=== PATIENT | male | born 1950 | race Caucasian/White ===

== ENCOUNTER 2018-12-31 10:49 | Inpatient (IN) | payer MEDICARE ==
[2018-12-31] MEDS ORDERED: Sodium Chloride 0.9% 1,000 ML IV ONE (11:06)
--- NOTE | 2018-12-31 11:13 | ED Physician Chart ---
ED Chief Complaint/HPI - Patient Information Date Seen:: 12/31/18 Time Seen:: 11:00 Chief Complaint:: Weakness History of Present Illness:: onset x 3 days of weakness and fatigue; no report of trauma, H/As, S/T, neck pain, cough, C/P, SOB, Abd. Pain, A/N/V/D/C, fever, chills, or urinary s/s Vitals:: Vital Signs - 8 hr 12/31/18 11:00 Temp 97.4 F HR 93 RR 16 BP 96/63 O2 Sat % 98 Historian:: Patient Review:: Nurse's Note Reviewed, Old Chart Reviewed ED Review of Systems - Review of Systems General/Constitutional: Fever, No chills, No weight loss, Weakness, No diaphoresis, No edema, No loss of appetite Skin: No skin lesions, No rash, No bruising Head: No headache, No light-headedness Eyes: No loss of vision, No pain, No diplopia ENT: No earache, No nasal drainage, No sore throat, No tinnitus Neck: No neck pain, No swelling, No thyromegaly, No stiffness, No mass noted Cardio Vascular: No chest pain, No palpitations, No PND, No orthopnea, No edema Pulmonary: No SOB, No cough, No sputum, No wheezing GI: No nausea, No vomiting, No diarrhea, No pain, No melena, No hematochezia, No constipation, No hematemesis G/U: No dysuria, No frequency, No hematuria, No nacturia Musculoskeletal: No bone or joint pain, No back pain, No muscle pain Endocrine: No polyuria, No polydipsia Psychiatric: No prior psych history, No depression, No anxiety, No suicidal ideation, No homicidal ideation, No auditory hallucination, No visual hallucination Hematopoietic: No bruising, No lymphadenopathy Allergic/Immuno: No urticaria, No angioedema Neurological: No syncope, No focal symptoms, Weakness, No paresthesia, No headache, No seizure, No dizziness, No confusion, No vertigo ED Past Medical History - Past Medical History Obtainable: Yes Past Medical History: HTN Family History: HTN Social History: Non Smoker, No Alcohol, No Drug Use, , Care Facility Surgical History: None Psychiatricy History: None Medication: Reviewed Family Medical History - Family Member Mother History Unknown: Yes ED Physical Exam - Physical Examination General/Constitutional: Awake, Well-developed, well-nourished, Alert, No distress, GCS 15, Non-toxic appearing, Ambulatory Head: Atraumatic Eyes: Lids, conjuctiva normal, PERRL, EOMI Skin: Nl inspection, No rash, No skin lesions, No ecchymosis, Well hydrated, No lymphadenopathy ENMT: External ears, nose nl, TM canals nl, Nasal exam nl, Lips, teeth, gums nl , Oropharynx nl, Tonsils nl Neck: Nontender, Full ROM w/o pain, No JVD, No nuchal rigidity, No bruit, No mass, No stridor Respiratory: Nl effort/Exclusion, Clear to Auscultation, No Wheeze/Rhonchi/Rales Cardio Vascular: RRR, No murmur, gallop, rubs, NL S1 S2, Carotid/Femoral/Distal pulses equal bilaterally GI: No tenderness/rebounding/guarding, No organomegaly, No hernia, Normal BS's, Nondistended, No mass/bruits, No McBurney tenderness, Rectum exam nl : No CVA tenderness Extremities: No tenderness or effusion, Full ROM, normal strength in all extremities, No edema, Normal digits & nails Neuro/Psych: Alert/oriented, DTR's symmetric, Normal sensory exam, Normal motor strength, Judgement/insight normal, Mood normal, Normal gait, No focal deficits Misc: Normal back, No paraspinal tenderness ED Labs/Radiology/EKG Results - Lab Results Comments:: Reviewed - Radiology Results Comments:: NAD; ? Hiatal Hernia - EKG Interpretations EKG Time:: 12:35 Rate & Rhythm: 61; NSR Comments:: non-specific st-t changes ED Septic Shock - . Is Septic Shock (SBP<90, OR Lactate>4 mmol\L) present?: No - <6hrs of presentation: Vital Signs: Vital Signs - 8 hr 12/31/18 11:00 Temp 97.4 F HR 93 RR 16 BP 96/63 O2 Sat % 98 ED Reassessment (Disposition) - Reassessment Reassessment Condition:: Improved - Diagnosis Diagnosis:: Weakness; Faiigue; Hypotension; Dehydration; Hyponatremia; Hypoalbuminemia; Hiatal Hernia - Aftercare/Follow up Instructions Aftercare/Follow-Up Instructions:: Counseled pt regarding lab results/diagnosis & need follow up, Counseled pt & family regarding lab results/diagnosis & need follow up - Patient Disposition Discharge/Transfer:: Acute Care w/in this hosp Accepting Physician:: Dr. Hughes Time Called:: 1300 Time Responded:: 13:00 Admitted to:: Telemetry Spoke to:: Dr. Hughes Admitting Medical Physician:: Dr. Hughes Condition at Disposition:: Stable, Improved
[2018-12-31 11:52] LABS: INR 1.24 (0.5-1.4)
[2018-12-31 11:54] LABS: % BASOPHILS 0.6 % (0.0-2.0); % EOSINOPHILS 2.9 % (0.0-5.0); % LYMPHOCYTES 24.9 % (20.0-50.0); % MONOCYTES 7.4 % (2.0-10.0); % NEUTROPHILS 64.2 % (40.0-80.0); EOSINOPHILE ABSOLUTE 0.2 Th/cmm (0.1-0.4); HEMATOCRIT 49.8 % (41.0-60); HEMOGLOBIN 16.4 gm/dL (12-16); LYMPHOCYTE ABSOLUTE 1.4 Th/cmm (1.5-3.0); MEAN CELL VOLUME 92.4 fl (80-99); MEAN CORPUSCULAR HEMOGLOBIN 30.5 pg (27.0-31.0); MONOCYTE ABSOLUTE 0.4 Th/cmm (0.3-1.0); NEUTROPHILE ABSOLUTE 3.6 Th/cmm (1.8-8.0); PLATELET COUNT 206 Th/cmm (150-400); RED BLOOD COUNT 5.39 Mil/cmm (3.80-5.80); RED CELL DISTRIBUTION WIDTH 12.9 % (11.5-20.0); WHITE BLOOD COUNT 5.6 Th/cmm (4.8-10.8)
[2018-12-31 11:59] LABS: ALB/GLOB RATIO 1.1 (1.0-1.8); ALBUMIN 3.5 gm/dL (4.2-5.5); ALKALINE PHOSPHATASE 102 U/L (34-104); AMYLASE SERUM 55 U/L (29-103); ANION GAP 13.3 (7.0-16.0); BUN - UREA NITROGEN 7 mg/dL (7-25); CALCIUM SERUM 8.6 mg/dL (8.6-10.3); CARBON DIOXIDE 24.5 mEq/L (21.0-31.0); CHLORIDE 101 mEq/L (98-107); CREATININE - SERUM 0.7 mg/dL (0.7-1.3); GFR AFRICAN-AMERICAN > 60.0 ml/min (>90); GFR NON AFRICAN-AMERICAN > 60.0 ml/min; GLUCOSE 88 mg/dL (70-105); LIPASE 17 U/L (11-82); POTASSIUM SERUM 3.8 mEq/L (3.5-5.1); SGOT 14 U/L (13-39); SGPT/ALT 7 U/L (7-52); SODIUM SERUM 135 mEq/L (136-145); TOTAL PROTEIN,SERUM 6.6 gm/dL (6.0-8.3)
--- NOTE | 2018-12-31 12:14 | Diagnostic Imaging Report ---
CHEST X-RAY: AP view INDICATION: pain COMPARISON: None FINDINGS: There is no focal consolidation or pleural effusions The heart is normal in size. There is soft tissue density along the right cardiac border. Osseous structures are intact. There is evidence of previous right AC joint separation. IMPRESSION: Soft tissue density along the right cardiac border. This may represent a large hiatal hernia. Other mass lesions cannot be excluded. Please correlate with clinical findings and old exams. Lateral views or CT exam may be obtained for further assessment. Final results were administered to the referring team on 12/31/2018 at 12:11 PM.
[2018-12-31 13:45] LABS: BILIRUBIN,TOTAL 0.8 mg/dL (0.3-1.0); CREATININE KINASE 60 U/L (30-223)
[2018-12-31 14:32] LABS: URINE SOURCE MIDSTREAM
[2018-12-31 14:36] LABS: URINE BILIRUBIN MODERATE (NEGATIVE); URINE BLOOD NEGATIVE (NEGATIVE); URINE GLUCOSE (UA) NEGATIVE (NEGATIVE); URINE KETONE 15 mg/dL (NEGATIVE); URINE LEUKOCYTE ESTERASE NEGATIVE (NEGATIVE); URINE MICROSCOPIC INDICATED? YES; URINE NITRATE NEGATIVE (NEGATIVE); URINE PROTEIN TRACE mg/dL (NEGATIVE)
[2018-12-31 14:39] LABS: URINE CLARITY CLEAR (CLEAR); URINE COLOR YELLOW
[2018-12-31 14:58] LABS: URINE BACTERIA NONE SEEN /hpf (NONE SEEN); URINE EPITHELIAL CELLS NONE SEEN /lpf (FEW); URINE RBC NONE SEEN /hpf (0-5); URINE SPERM FEW /hpf (NONE SEEN); URINE WBC NONE SEEN /hpf (0-5)
[2018-12-31 22:21] VITALS: BP 111/70
[2018-12-31] MEDS: D5-0.45NS 1,000 ML IV SCH (23:43)
[2019-01-01 11:15] LABS: URINE ICTOTEST NEGATIVE (NEGATIVE)
[2019-01-01] MEDS: D5-0.45NS 1,000 ML IV SCH ×2 (11:45→19:03)
--- NOTE | 2019-01-01 11:52 | History and Physical ---
History of Present Illness - HPI Chief Complaint: 68 y/o male was brought into ER due to onset x 3 days of fatigue and weakness. HPI: 68 y/o male was admitted to [facility] due to onset x 3 days of fatigue and weakness. Patient has history of Hypertension. Patient had an ER assessment and a complete workup done. Patient had a chest x-ray performed which showed Large hiatal hernia. Patient was diagnosed with Large Hiatal hernia. Patient will have a GI consult. I will follow, treat and monitor patient. Patient will continue current treatment plan as ordered. Vital Signs: Last Vital Signs Temp 97.5 F 01/01/19 07:28 Pulse 58 01/01/19 07:28 Resp 18 01/01/19 07:28 BP 103/61 01/01/19 07:28 Pulse Ox 95 01/01/19 07:28 Past Medical History Cardiovascular: Report: HTN Pulmonary: Report: No Pertinent Hx [employer]: Report: No Pertinent Hx GI: Report: No Pertinent Hx Psych: Report: No Pertinent Hx Musculoskeletal: Report: No Pertinent Hx Rheumatologic: Report: No pertinent Hx Infectious Disease: Report: No Pertinent Hx Renal/: Report: No Pertinent Hx Endocrine: Report: No Pertinent Hx Dermatology: Report: No Pertinent Hx - Past Surgical History Past Surgical History: No pertinent Hx Family Medical History - Family Member Mother History Unknown: Yes Name:: PEARL SULLIVAN Ethnicity: Non- Living Status: Hx Family Coronary Artery Disease: Yes FATHER Name:: JOI SULLIVAN Ethnicity: Non- Living Status: Other Medical History: GASTRIC ULCER,UPPER G.I.BLEED (CAUSE OF ) Social History Smoke: No Alcohol: None Drugs: None Lives: Intermediate Domestic Violence: Negative Health Maintenance Health Maintenance: Other (please see chart.) - Medications Home Medications: Home Medication Medication Instructions Recorded Type Unobtainable 12/31/18 History Other Medications: Please see medication reconciliation sheet. - Allergies Allergies/Adverse Reactions: Allergies Allergy/AdvReac Type Severity Reaction Status Date / Time No Known Allergies Allergy Verified 12/31/18 11:33 Review of Systems - Review of Systems Review of Systems: Patient was admitted due to weakness, fatigue and Large Hiatal hernia. Constitutional: Report: Weakness, Other (Fatigue.) Eyes: Report: No Significant ENT: Report: No Significant Respiratory: Report: No Significant Cardiovascular: Report: No Significant Gastrointestinal: Report: Other (Hiatal hernia.) Genitourinary: Report: No Significant Musculoskeletal: Report: No Significant Skin: Report: No Significant Neurological: Report: Weakness Physical Exam - Physical Exam HEENT: Report: Ears Nose Throat within normal limits Neck: Report: Within normal limits Cardiovascular Systems: Report: +s1/s2 noted Respiratory: Report: Breath Sounds are within normal limits Abdomen: Report: Non-tender to palpation Back: Report: Inspection of back is within normal limits. Extremities: Report: Non-tender to palpation. Skin: Report: Color of skin is within normal limits Neuro/Psych: Report: Mood affect is within normal limits - Lab Results All Lab Results last 24 hours: Laboratory Results - last 24 hr 12/31/18 12/31/18 12/31/18 11:25 11:25 11:25 WBC 5.6 RBC 5.39 Hgb 16.4 Hct 49.8 MCV 92.4 MCH 30.5 MCHC Differential 33.0 RDW 12.9 Plt Count 206 MPV 10.6 Neutrophils % 64.2 Lymphocytes % 24.9 Monocytes % 7.4 Eosinophils % 2.9 Basophils % 0.6 PT 12.8 H INR 1.24 PTT (Actin FS) 34.6 Sodium 135 L Potassium 3.8 Chloride 101 Carbon Dioxide 24.5 Anion Gap 13.3 BUN 7 Creatinine 0.7 Est GFR ( Amer) > 60.0 Est GFR (Non-Af Amer) > 60.0 BUN/Creatinine Ratio 10.0 Glucose 88 Whole Bld Lactic Acid Calcium 8.6 Total Bilirubin 0.8 AST 14 ALT 7 Alkaline Phosphatase 102 Creatine Kinase 60 Troponin I Total Protein 6.6 Albumin 3.5 L Globulin 3.1 Albumin/Globulin Ratio 1.1 Amylase 55 Lipase 17 Urine Source Urine Color Urine Clarity Urine pH Ur Specific [place] Urine Protein Urine Glucose (UA) Urine Ketones Urine Blood Urine Nitrate Urine Bilirubin Urine Ictotest Urine Urobilinogen Ur Leukocyte Esterase Urine RBC Urine WBC Ur Epithelial Cells Urine Bacteria Urine Mucus Urine Sperm 12/31/18 12/31/18 11:25 14:30 WBC RBC Hgb Hct MCV MCH MCHC Differential RDW Plt Count MPV Neutrophils % Lymphocytes % Monocytes % Eosinophils % Basophils % PT INR PTT (Actin FS) Sodium Potassium Chloride Carbon Dioxide Anion Gap BUN Creatinine Est GFR ( Amer) Est GFR (Non-Af Amer) BUN/Creatinine Ratio Glucose Whole Bld Lactic Acid 0.97 Calcium Total Bilirubin AST ALT Alkaline Phosphatase Creatine Kinase Troponin I < 0.01 L Total Protein Albumin Globulin Albumin/Globulin Ratio Amylase Lipase Urine Source [place] Urine Color YELLOW Urine Clarity CLEAR Urine pH 6.0 Ur Specific [place] >= 1.030 Urine Protein TRACE Urine Glucose (UA) NEGATIVE Urine Ketones 15 H Urine Blood NEGATIVE Urine Nitrate NEGATIVE Urine Bilirubin MODERATE H Urine Ictotest NEGATIVE Urine Urobilinogen 1.0 Ur Leukocyte Esterase NEGATIVE Urine RBC NONE SEEN Urine WBC NONE SEEN Ur Epithelial Cells NONE SEEN Urine Bacteria NONE SEEN Urine Mucus MANY Urine Sperm FEW - Assessment Assessment: Large hiatal hernia. Hypertension. - Plan Plan: GI consult requested. Continuation of care. Monitor Labs. Continue present meds as directed. Monitor Diet/Nutritional support. Pain Management. Physical therapy/Occupational therapy prn. Safety precaution. Supportive care. Fall precaution, frequent nursing rounds, and as needed restraints to prevent fall. Continue collaborating with consulting specialists, case management and nursing team. Will Monitor patient and continue current treatment plan as ordered.
[2019-01-01] MEDS: Atorvastatin Calcium 10 MG TAB PO SCH (18:44)
[2019-01-02] MEDS: D5-0.45NS 1,000 ML IV SCH ×4 (02:49→20:11)
[2019-01-02 05:23] LABS: % EOSINOPHILS 3.3 % (0.0-5.0); % LYMPHOCYTES 28.8 % (20.0-50.0); % NEUTROPHILS 60.7 % (40.0-80.0); BASOPHILE ABSOLUTE 0.1 Th/cumm (0-0.2); EOSINOPHILE ABSOLUTE 0.2 Th/cmm (0.1-0.4); HEMATOCRIT 45.7 % (41.0-60); LYMPHOCYTE ABSOLUTE 1.9 Th/cmm (1.5-3.0); MEAN CELL VOLUME 93.1 fl (80-99); MEAN CORPUSCULAR HEMOGLOBIN 30.7 pg (27.0-31.0); MEAN CORPUSCULAR HGB CONC 32.9 pg (28.0-36.0); MONOCYTE ABSOLUTE 0.3 Th/cmm (0.3-1.0); PLATELET COUNT 183 Th/cmm (150-400); RED CELL DISTRIBUTION WIDTH 12.9 % (11.5-20.0); WHITE BLOOD COUNT 6.5 Th/cmm (4.8-10.8)
[2019-01-02 05:30] LABS: ANION GAP 8.3 (7.0-16.0); BUN - UREA NITROGEN 6 mg/dL (7-25); CHLORIDE 107 mEq/L (98-107); CREATININE - SERUM 0.6 mg/dL (0.7-1.3); GFR AFRICAN-AMERICAN > 60.0 ml/min (>90); GFR NON AFRICAN-AMERICAN > 60.0 ml/min; GLUCOSE 109 mg/dL (70-105); POTASSIUM SERUM 3.3 mEq/L (3.5-5.1); SODIUM SERUM 138 mEq/L (136-145)
[2019-01-02 05:56] LABS: % BASOPHILS 1.7 % (0.0-2.0)
[2019-01-02] MEDS: Atorvastatin Calcium 10 MG TAB PO SCH (08:21)
[2019-01-02] MEDS ORDERED: Potassium Chloride 20 mEq ER Tab PO ONE (11:09)
--- NOTE | 2019-01-02 12:04 | Internal Medicine Prog Note ---
Internal Medicine Subjective - Subjective Service Date: 01/02/19 Patient seen and examined:: with staff Patient is:: awake Per staff patient has:: tolerating meds Internal Medicine Objective - Results Result Diagrams: 01/02/19 05:05 01/02/19 05:05 Recent Labs: Laboratory Last Values WBC 6.5 Th/cmm (4.8-10.8) 01/02/19 05:05 RBC 4.90 Mil/cmm (3.80-5.80) 01/02/19 05:05 Hgb 15.0 gm/dL (12-16) 01/02/19 05:05 Hct 45.7 % (41.0-60) 01/02/19 05:05 MCV 93.1 fl (80-99) 01/02/19 05:05 MCH 30.7 pg (27.0-31.0) 01/02/19 05:05 MCHC Differential 32.9 pg (28.0-36.0) 01/02/19 05:05 RDW 12.9 % (11.5-20.0) 01/02/19 05:05 Plt Count 183 Th/cmm (150-400) 01/02/19 05:05 MPV 9.3 fl 01/02/19 05:05 Neutrophils % 60.7 % (40.0-80.0) 01/02/19 05:05 Lymphocytes % 28.8 % (20.0-50.0) 01/02/19 05:05 Monocytes % 5.0 % (2.0-10.0) 01/02/19 05:05 Eosinophils % 3.3 % (0.0-5.0) 01/02/19 05:05 Basophils % 1.7 % (0.0-2.0) 01/02/19 05:05 PT 12.8 SECONDS (9.5-11.5) H 12/31/18 11:25 INR 1.24 (0.5-1.4) 12/31/18 11:25 PTT (Actin FS) 34.6 SECONDS (26.0-38.0) 12/31/18 11:25 Sodium 138 mEq/L (136-145) 01/02/19 05:05 Potassium 3.3 mEq/L (3.5-5.1) L 01/02/19 05:05 Chloride 107 mEq/L (98-107) 01/02/19 05:05 Carbon Dioxide 26.0 mEq/L (21.0-31.0) 01/02/19 05:05 Anion Gap 8.3 (7.0-16.0) 01/02/19 05:05 BUN 6 mg/dL (7-25) L 01/02/19 05:05 Creatinine 0.6 mg/dL (0.7-1.3) L 01/02/19 05:05 Est GFR ( Amer) > 60.0 ml/min (>90) 01/02/19 05:05 Est GFR (Non-Af Amer) > 60.0 ml/min 01/02/19 05:05 BUN/Creatinine Ratio 10.0 01/02/19 05:05 Glucose 109 mg/dL (70-105) H 01/02/19 05:05 Whole Bld Lactic Acid 0.97 mmol/L (0.60-1.99) 12/31/18 11:25 Calcium 8.0 mg/dL (8.6-10.3) L 01/02/19 05:05 Total Bilirubin 0.8 mg/dL (0.3-1.0) 12/31/18 11:25 AST 14 U/L (13-39) 12/31/18 11:25 ALT 7 U/L (7-52) 12/31/18 11:25 Alkaline Phosphatase 102 U/L (34-104) 12/31/18 11:25 Creatine Kinase 60 U/L (30-223) 12/31/18 11:25 Troponin I < 0.01 ng/mL (0.01-0.05) L 12/31/18 11:25 Total Protein 6.6 gm/dL (6.0-8.3) 12/31/18 11:25 Albumin 3.5 gm/dL (4.2-5.5) L 12/31/18 11:25 Globulin 3.1 gm/dL 12/31/18 11:25 Albumin/Globulin Ratio 1.1 (1.0-1.8) 12/31/18 11:25 Amylase 55 U/L (29-103) 12/31/18 11:25 Lipase 17 U/L (11-82) 12/31/18 11:25 Urine Source MIDSTREAM 12/31/18 14:30 Urine Color YELLOW 12/31/18 14:30 Urine Clarity CLEAR (CLEAR) 12/31/18 14:30 Urine pH 6.0 (4.6 - 8.0) 12/31/18 14:30 Ur Specific [place] >= 1.030 (1.005-1.030) 12/31/18 14:30 Urine Protein TRACE mg/dL (NEGATIVE) 12/31/18 14:30 Urine Glucose (UA) NEGATIVE mg/dL (NEGATIVE) 12/31/18 14:30 Urine Ketones 15 mg/dL (NEGATIVE) H 12/31/18 14:30 Urine Blood NEGATIVE (NEGATIVE) 12/31/18 14:30 Urine Nitrate NEGATIVE (NEGATIVE) 12/31/18 14:30 Urine Bilirubin MODERATE (NEGATIVE) H 12/31/18 14:30 Urine Ictotest NEGATIVE (NEGATIVE) 12/31/18 14:30 Urine Urobilinogen 1.0 E.U./dL (0.2 - 1.0) 12/31/18 14:30 Ur Leukocyte Esterase NEGATIVE (NEGATIVE) 12/31/18 14:30 Urine RBC NONE SEEN /hpf (0-5) 12/31/18 14:30 Urine WBC NONE SEEN /hpf (0-5) 12/31/18 14:30 Ur Epithelial Cells NONE SEEN /lpf (FEW) 12/31/18 14:30 Urine Bacteria NONE SEEN /hpf (NONE SEEN) 12/31/18 14:30 Urine Mucus MANY /lpf (FEW) 12/31/18 14:30 Urine Sperm FEW /hpf (NONE SEEN) 12/31/18 14:30 - Physical Exam Vitals and I&O: Vital Signs Temp 97.4 F 01/02/19 08:00 Pulse 58 01/02/19 08:00 Resp 18 01/02/19 08:00 BP 99/61 01/02/19 08:00 Pulse Ox 94 01/02/19 08:00 Intake & Output 01/01/19 01/02/19 01/02/19 18:59 06:59 18:59 Intake Total 1550 1883.333 691.667 Output Total 600 Balance 1550 1283.333 691.667 Weight (lbs) 220 lb 220 lb Intake: Intake, IV Amount 1000 1883.333 691.667 D5-0.45NS 1,000 ml @ 125 1000 1883.333 691.667 mls/hr IV .Q8H [facility] Rx#: [id number] Oral 550 Output: Urine 600 Other: # Voids 4 # Bowel Movements 1 Stool Characteristics Soft Soft Soft Weight Source Bedscale Bedscale Active Medications: Current Medications Atorvastatin Calcium (Lipitor) 40 mg PO DAILY [facility]; Protocol Stop: 03/02/19 17:44 Last Admin: 01/02/19 08:21 Dose: 40 mg Donepezil HCl (Aricept) 10 mg PO DAILY [facility] Stop: 03/02/19 17:29 Last Admin: 01/02/19 08:21 Dose: 10 mg Escitalopram Oxalate (Lexapro) 10 mg PO DAILY [facility]; Protocol Stop: 03/02/19 17:14 Last Admin: 01/02/19 08:21 Dose: 10 mg Folic Acid (Folate) 1 mg PO DAILY [facility] Stop: 03/02/19 17:14 Last Admin: 01/02/19 08:21 Dose: 1 mg Dextrose/Sodium Chloride (D5-0.45ns) 1,000 mls @ 125 mls/hr IV .Q8H [facility] Stop: 03/01/19 23:37 Last Admin: 01/02/19 08:21 Dose: 125 mls/hr Risperidone (Risperdal) 3 mg PO DAILY [facility]; Protocol Stop: 03/02/19 17:29 Last Admin: 01/02/19 08:20 Dose: 3 mg Rivaroxaban (Xarelto) 20 mg PO DAILY [facility] Stop: 03/02/19 17:14 Last Admin: 01/02/19 08:21 Dose: 20 mg Trazodone HCl (Desyrel) 100 mg PO HS [facility]; Protocol Stop: 03/02/19 20:59 Last Admin: 01/01/19 20:40 Dose: 100 mg General: weak HEENT: NC/AT, PERRLA Neck: Supple Lungs: CTAB Cardiovascular: without murmur Abdomen: soft, non-tender, non-distended Extremities: excoriation Internal Medicine Assmt/Plan - Assessment Assessment: Large hiatal hernia. Hypertension. - Plan Plan: Continuation of care. Monitor Labs. Continue present meds as directed. Monitor Diet/Nutritional support. Pain Management. Physical therapy/Occupational therapy prn. Safety precaution. Supportive care. Fall precaution, frequent nursing rounds, and as needed restraints to prevent fall. Continue collaborating with consulting specialists, case management and nursing team. Will Monitor patient and continue current treatment plan as ordered.
[2019-01-03] MEDS: D5-0.45NS 1,000 ML IV SCH ×3 (03:58→20:47)
[2019-01-03 05:27] LABS: % BASOPHILS 2.9 % (0.0-2.0); % EOSINOPHILS 2.9 % (0.0-5.0); % LYMPHOCYTES 25.4 % (20.0-50.0); % MONOCYTES 3.7 % (2.0-10.0); % NEUTROPHILS 65.1 % (40.0-80.0); BASOPHILE ABSOLUTE 0.2 Th/cumm (0-0.2); EOSINOPHILE ABSOLUTE 0.2 Th/cmm (0.1-0.4); HEMATOCRIT 43.7 % (41.0-60); HEMOGLOBIN 14.5 gm/dL (12-16); LYMPHOCYTE ABSOLUTE 1.7 Th/cmm (1.5-3.0); MEAN CELL VOLUME 91.4 fl (80-99); MEAN CORPUSCULAR HEMOGLOBIN 30.4 pg (27.0-31.0); MEAN CORPUSCULAR HGB CONC 33.2 pg (28.0-36.0); MONOCYTE ABSOLUTE 0.2 Th/cmm (0.3-1.0); NEUTROPHILE ABSOLUTE 4.2 Th/cmm (1.8-8.0); PLATELET COUNT 200 Th/cmm (150-400); RED BLOOD COUNT 4.78 Mil/cmm (3.80-5.80); WHITE BLOOD COUNT 6.5 Th/cmm (4.8-10.8)
[2019-01-03 05:36] LABS: ANION GAP 8.2 (7.0-16.0); BUN - UREA NITROGEN 7 mg/dL (7-25); CARBON DIOXIDE 26.3 mEq/L (21.0-31.0); CHLORIDE 104 mEq/L (98-107); CREATININE - SERUM 0.7 mg/dL (0.7-1.3); GFR AFRICAN-AMERICAN > 60.0 ml/min (>90); GFR NON AFRICAN-AMERICAN > 60.0 ml/min; GLUCOSE 104 mg/dL (70-105); POTASSIUM SERUM 3.5 mEq/L (3.5-5.1); SODIUM SERUM 135 mEq/L (136-145)
[2019-01-03] MEDS: Atorvastatin Calcium 10 MG TAB PO SCH (08:32)
[2019-01-03] MEDS: Pantoprazole 40 mg EC Tab PO SCH (09:27)
--- NOTE | 2019-01-03 11:34 | Internal Medicine Prog Note ---
Internal Medicine Subjective - Subjective Service Date: 01/03/19 Patient seen and examined:: with staff Patient is:: awake, verbal, in bed Patient Complaints of:: other (Large Hiatal hernia.) Per staff patient has:: no episodes of fall, tolerating meds Internal Medicine Objective - Results Result Diagrams: 01/03/19 05:15 01/03/19 05:15 Recent Labs: Laboratory Last Values WBC 6.5 Th/cmm (4.8-10.8) 01/03/19 05:15 RBC 4.78 Mil/cmm (3.80-5.80) 01/03/19 05:15 Hgb 14.5 gm/dL (12-16) 01/03/19 05:15 Hct 43.7 % (41.0-60) 01/03/19 05:15 MCV 91.4 fl (80-99) 01/03/19 05:15 MCH 30.4 pg (27.0-31.0) 01/03/19 05:15 MCHC Differential 33.2 pg (28.0-36.0) 01/03/19 05:15 RDW 13.0 % (11.5-20.0) 01/03/19 05:15 Plt Count 200 Th/cmm (150-400) 01/03/19 05:15 MPV 9.5 fl 01/03/19 05:15 Neutrophils % 65.1 % (40.0-80.0) 01/03/19 05:15 Lymphocytes % 25.4 % (20.0-50.0) 01/03/19 05:15 Monocytes % 3.7 % (2.0-10.0) 01/03/19 05:15 Eosinophils % 2.9 % (0.0-5.0) 01/03/19 05:15 Basophils % 2.9 % (0.0-2.0) H 01/03/19 05:15 PT 12.8 SECONDS (9.5-11.5) H 12/31/18 11:25 INR 1.24 (0.5-1.4) 12/31/18 11:25 PTT (Actin FS) 34.6 SECONDS (26.0-38.0) 12/31/18 11:25 Sodium 135 mEq/L (136-145) L 01/03/19 05:15 Potassium 3.5 mEq/L (3.5-5.1) 01/03/19 05:15 Chloride 104 mEq/L (98-107) 01/03/19 05:15 Carbon Dioxide 26.3 mEq/L (21.0-31.0) 01/03/19 05:15 Anion Gap 8.2 (7.0-16.0) 01/03/19 05:15 BUN 7 mg/dL (7-25) 01/03/19 05:15 Creatinine 0.7 mg/dL (0.7-1.3) 01/03/19 05:15 Est GFR ( Amer) > 60.0 ml/min (>90) 01/03/19 05:15 Est GFR (Non-Af Amer) > 60.0 ml/min 01/03/19 05:15 BUN/Creatinine Ratio 10.0 01/03/19 05:15 Glucose 104 mg/dL (70-105) 01/03/19 05:15 Whole Bld Lactic Acid 0.97 mmol/L (0.60-1.99) 12/31/18 11:25 Calcium 8.0 mg/dL (8.6-10.3) L 01/03/19 05:15 Total Bilirubin 0.8 mg/dL (0.3-1.0) 12/31/18 11:25 AST 14 U/L (13-39) 12/31/18 11:25 ALT 7 U/L (7-52) 12/31/18 11:25 Alkaline Phosphatase 102 U/L (34-104) 12/31/18 11:25 Creatine Kinase 60 U/L (30-223) 12/31/18 11:25 Troponin I < 0.01 ng/mL (0.01-0.05) L 12/31/18 11:25 Total Protein 6.6 gm/dL (6.0-8.3) 12/31/18 11:25 Albumin 3.5 gm/dL (4.2-5.5) L 12/31/18 11:25 Globulin 3.1 gm/dL 12/31/18 11:25 Albumin/Globulin Ratio 1.1 (1.0-1.8) 12/31/18 11:25 Amylase 55 U/L (29-103) 12/31/18 11:25 Lipase 17 U/L (11-82) 12/31/18 11:25 Urine Source [place] 12/31/18 14:30 Urine Color YELLOW 12/31/18 14:30 Urine Clarity CLEAR (CLEAR) 12/31/18 14:30 Urine pH 6.0 (4.6 - 8.0) 12/31/18 14:30 Ur Specific [place] >= 1.030 (1.005-1.030) 12/31/18 14:30 Urine Protein TRACE mg/dL (NEGATIVE) 12/31/18 14:30 Urine Glucose (UA) NEGATIVE mg/dL (NEGATIVE) 12/31/18 14:30 Urine Ketones 15 mg/dL (NEGATIVE) H 12/31/18 14:30 Urine Blood NEGATIVE (NEGATIVE) 12/31/18 14:30 Urine Nitrate NEGATIVE (NEGATIVE) 12/31/18 14:30 Urine Bilirubin MODERATE (NEGATIVE) H 12/31/18 14:30 Urine Ictotest NEGATIVE (NEGATIVE) 12/31/18 14:30 Urine Urobilinogen 1.0 E.U./dL (0.2 - 1.0) 12/31/18 14:30 Ur Leukocyte Esterase NEGATIVE (NEGATIVE) 12/31/18 14:30 Urine RBC NONE SEEN /hpf (0-5) 12/31/18 14:30 Urine WBC NONE SEEN /hpf (0-5) 12/31/18 14:30 Ur Epithelial Cells NONE SEEN /lpf (FEW) 12/31/18 14:30 Urine Bacteria NONE SEEN /hpf (NONE SEEN) 12/31/18 14:30 Urine Mucus MANY /lpf (FEW) 12/31/18 14:30 Urine Sperm FEW /hpf (NONE SEEN) 12/31/18 14:30 - Physical Exam Vitals and I&O: Vital Signs Temp 98.3 F 01/03/19 07:58 Pulse 64 01/03/19 07:58 Resp 20 01/03/19 07:58 BP 113/70 01/03/19 07:58 Pulse Ox 100 01/03/19 07:58 Intake & Output 01/02/19 01/03/19 01/03/19 18:59 06:59 18:59 Intake Total 2004.167 1879.584 Output Total 800 1500 Balance 1204.167 379.584 Weight (lbs) 99.79 kg 99.79 kg Intake: Intake, IV Amount 9433.140 1613.584 D5-0.45NS 1,000 ml @ 125 7309.270 6443.584 mls/hr IV .Q8H [facility] Rx#: [id number] Oral 500 240 Output: Urine 800 1500 Other: Stool Characteristics Soft Weight Source Bedscale Bedscale Active Medications: Current Medications Atorvastatin Calcium (Lipitor) 40 mg PO DAILY [facility]; Protocol Stop: 03/02/19 17:44 Last Admin: 01/03/19 08:32 Dose: 40 mg Donepezil HCl (Aricept) 10 mg PO DAILY [facility] Stop: 03/02/19 17:29 Last Admin: 01/03/19 08:32 Dose: 10 mg Escitalopram Oxalate (Lexapro) 10 mg PO DAILY [facility]; Protocol Stop: 03/02/19 17:14 Last Admin: 01/03/19 08:32 Dose: 10 mg Folic Acid (Folate) 1 mg PO DAILY [facility] Stop: 03/02/19 17:14 Last Admin: 01/03/19 08:32 Dose: 1 mg Dextrose/Sodium Chloride (D5-0.45ns) 1,000 mls @ 125 mls/hr IV .Q8H [facility] Stop: 03/01/19 23:37 Last Admin: 01/03/19 03:58 Dose: 125 mls/hr Pantoprazole Sodium (Protonix) 40 mg PO QDAC [facility] Stop: 03/04/19 09:14 Last Admin: 01/03/19 09:27 Dose: 40 mg Risperidone (Risperdal) 3 mg PO DAILY [facility]; Protocol Stop: 03/02/19 17:29 Last Admin: 01/03/19 08:33 Dose: 3 mg Rivaroxaban (Xarelto) 20 mg PO DAILY [facility] Stop: 03/02/19 17:14 Last Admin: 01/03/19 08:32 Dose: 20 mg Trazodone HCl (Desyrel) 100 mg PO HS [facility]; Protocol Stop: 03/02/19 20:59 Last Admin: 01/02/19 20:10 Dose: 100 mg Physical Exam: Patient has Large hiatal hernia. General: weak HEENT: NC/AT, PERRLA Neck: Supple Lungs: CTAB Cardiovascular: without murmur Abdomen: soft, non-tender, non-distended Extremities: excoriation Neurological: no change, alert Internal Medicine Assmt/Plan - Assessment Assessment: Large hiatal hernia. Hypertension. - Plan Plan: GI consult requested. Continuation of care. Monitor Labs. Continue present meds as directed. Monitor Diet/Nutritional support. Pain Management. Physical therapy/Occupational therapy prn. Safety precaution. Supportive care. Fall precaution, frequent nursing rounds, and as needed restraints to prevent fall. Continue collaborating with consulting specialists, case management and nursing team. Will Monitor patient and continue current treatment plan as ordered. Nutritional Asmnt/Malnutr-PDOC - Dietary Evaluation Malnutrition Findings (Please click <Entered> for more info): see orders.
--- NOTE | 2019-01-03 12:48 | Consultation ---
DATE OF CONSULTATION: 01/03/2019 INPATIENT GASTROINTESTINAL CONSULTATION REFERRING PHYSICIAN: Dr. Hughes. REASON FOR CONSULTATION: Hiatal hernia. HISTORY: This is a 68-year-old male who was brought to the hospital because of fatigue and weakness and they called for GI consult. The patient denies having any abdominal pain. Denies nausea, vomiting. Denies diarrhea, denies constipation. Denies melena, hematochezia, hematemesis, and coffee-ground emesis. He states that there are no GI problems. He does admit on some occasion in his life he has experienced heartburn, but nothing that is unmanageable at this point. PAST MEDICAL HISTORY: Hypertension. PAST SURGICAL HISTORY: None to add recently. FAMILY HISTORY: Noncontributory. SOCIAL HISTORY: Denies tobacco, alcohol or IV drug usage. ALLERGIES: None. CURRENT MEDICATIONS: Lipitor, Aricept, Lexapro, folic acid, Risperdal, Xarelto, Desyrel. REVIEW OF SYSTEMS: A 10-point review of system was performed and pertinent positive was weakness. All other systems were otherwise negative. PHYSICAL EXAMINATION: VITAL SIGNS: Temperature is 98.3, breathing 20, pulse of 64, blood pressure 113/70, satting 100%. GENERAL: In no apparent distress. Eyes are anicteric. Normal conjunctivae. HEENT: Normocephalic, atraumatic. Moist mucous membranes. NECK: Soft, supple. CHEST: Clear, normal effort. CARDIOVASCULAR: Regular rate and rhythm. ABDOMEN: Soft, nontender, nondistended, normal bowel sounds. SKIN: Warm, dry. EXTREMITIES: Reveal no cyanosis. PSYCHOLOGIC: Alert and oriented x 3. LABORATORY DATA: Labs show a white count of 6.5, hemoglobin 14.5, platelets at 200. INR 1.24, BUN 7, creatinine 0.7, total bilirubin 0.8, AST 14, ALT 7, alkaline phosphatase 102. Lipase 17. IMPRESSION: This is a 68-year-old male with weakness, was admitted by the primary team. We are asked to consult for the hiatal hernia. There is a chest x-ray that shows that he may have a large hiatal hernia. This can be confirmed with an upper GI series. The patient states he had an endoscopy at the [facility] in 06/2018. His labs were reviewed and there were no signs of any anemia. His liver function tests and pancreatic tests were normal, indicating that there are no issues at this time for the hepatobiliary system. The patient does not have any symptoms at this time, but can be given some Protonix should he develop heartburn. PLAN: 1. Provide the patient with Protonix. 2. Get an upper GI series. 3. Consider doing an EGD, but since the patient had one done at [place] earlier this year, there is no need to repeat it in such a short time. 4. If the hiatal hernia is causing the patient to have the symptoms, please get a surgeon to see the patient to repair the hiatal hernia. Thank you for allowing me to participate. Please call me if any questions. JOB# [id number]
--- NOTE | 2019-01-03 13:48 | Diagnostic Imaging Report ---
Upper GI series HISTORY: Hiatal hernia COMPARISON: None technique/procedure: Cut Off [place] Log view demonstrates what appears to be a retrocardiac hiatal hernia. Oral contrast was administered multiple static images were obtained. Assessment for focal lesions is limited on this examination. There is a large retrocardiac hiatal hernia. There is transit of contrast into the small bowel. IMPRESSION: Large retrocardiac hiatal hernia. A follow-up x-ray is recommended to ensure clearance of oral contrast and patient's large hiatal hernia.
--- NOTE | 2019-01-03 14:08 | Diagnostic Imaging Report ---
CHEST X-RAY: AP view INDICATION: pain COMPARISON: 12/31/2018 FINDINGS: Retained oral contrast is still seen in patients hiatal hernia. Increased right basal lung markings are noted. No effusions. Mild cardiomegaly is noted. IMPRESSION: Retained oral contrast still seen within the patient's hiatal hernia. A follow-up x-ray may be obtained to ensure complete clearance. Increased right basal lung markings probably related to patient's hiatal hernia. Consolidative changes of the right medial lung base cannot be excluded, follow-up recommended.
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
[2019-01-04 05:48] LABS: MEAN CORPUSCULAR HEMOGLOBIN 30.4 pg (27.0-31.0); MONOCYTE ABSOLUTE 0.5 Th/cmm (0.3-1.0)
[2019-01-04 05:56] LABS: ANION GAP 7.5 (7.0-16.0); BUN - UREA NITROGEN 6 mg/dL (7-25); CALCIUM SERUM 8.1 mg/dL (8.6-10.3); CARBON DIOXIDE 28.1 mEq/L (21.0-31.0); CHLORIDE 104 mEq/L (98-107); CREATININE - SERUM 0.7 mg/dL (0.7-1.3); GFR AFRICAN-AMERICAN > 60.0 ml/min (>90); GFR NON AFRICAN-AMERICAN > 60.0 ml/min; GLUCOSE 101 mg/dL (70-105); POTASSIUM SERUM 3.6 mEq/L (3.5-5.1); SODIUM SERUM 136 mEq/L (136-145)
[2019-01-04 05:59] LABS: % BASOPHILS 0.2 % (0.0-2.0); % EOSINOPHILS 3.5 % (0.0-5.0); % LYMPHOCYTES 25.2 % (20.0-50.0); % MONOCYTES 7.4 % (2.0-10.0); % NEUTROPHILS 63.7 % (40.0-80.0); EOSINOPHILE ABSOLUTE 0.2 Th/cmm (0.1-0.4); HEMATOCRIT 48.5 % (41.0-60); LYMPHOCYTE ABSOLUTE 1.8 Th/cmm (1.5-3.0); MEAN CELL VOLUME 91.9 fl (80-99); NEUTROPHILE ABSOLUTE 4.6 Th/cmm (1.8-8.0); PLATELET COUNT 190 Th/cmm (150-400); RED BLOOD COUNT 5.27 Mil/cmm (3.80-5.80); RED CELL DISTRIBUTION WIDTH 13.1 % (11.5-20.0); WHITE BLOOD COUNT 7.1 Th/cmm (4.8-10.8)
[2019-01-04] MEDS: Pantoprazole 40 mg EC Tab PO SCH (06:37)
[2019-01-04] MEDS: D5-0.45NS 1,000 ML IV SCH ×3 (06:43→22:29)
--- NOTE | 2019-01-04 09:25 | Diagnostic Imaging Report ---
KUB single view HISTORY: Abdominal pain, ensure complete clearance of oral contrast. COMPARISON: Upper GI examination on 01/03/2019 FINDINGS: Patient's hiatal hernia is partially visualized, however, there appears to be clearance of contrast with the majority of contrast seen within the large bowel. The bowel gas pattern is nonspecific. IMPRESSION: Patient's hiatal hernia is partially visualized, however there appears to be clearance. The Majority of oral contrast is now seen within the large bowel. The bowel gas pattern is nonspecific.
[2019-01-04] MEDS: Atorvastatin Calcium 10 MG TAB PO SCH (09:30)
--- NOTE | 2019-01-04 13:21 | GI Progress Note ---
Subjective - Review of Systems Service Date: 01/04/19 Subjective: Tolerating a diet, no overnight events GI OBJECTIVE - Results Result Diagrams: 01/04/19 05:40 01/04/19 05:40 Recent Labs: Laboratory Last Values WBC 7.1 Th/cmm (4.8-10.8) 01/04/19 05:40 RBC 5.27 Mil/cmm (3.80-5.80) 01/04/19 05:40 Hgb 16.0 gm/dL (12-16) 01/04/19 05:40 Hct 48.5 % (41.0-60) 01/04/19 05:40 MCV 91.9 fl (80-99) 01/04/19 05:40 MCH 30.4 pg (27.0-31.0) 01/04/19 05:40 MCHC Differential 33.0 pg (28.0-36.0) 01/04/19 05:40 RDW 13.1 % (11.5-20.0) 01/04/19 05:40 Plt Count 190 Th/cmm (150-400) 01/04/19 05:40 MPV 10.1 fl 01/04/19 05:40 Neutrophils % 63.7 % (40.0-80.0) 01/04/19 05:40 Lymphocytes % 25.2 % (20.0-50.0) 01/04/19 05:40 Monocytes % 7.4 % (2.0-10.0) 01/04/19 05:40 Eosinophils % 3.5 % (0.0-5.0) 01/04/19 05:40 Basophils % 0.2 % (0.0-2.0) 01/04/19 05:40 PT 12.8 SECONDS (9.5-11.5) H 12/31/18 11:25 INR 1.24 (0.5-1.4) 12/31/18 11:25 PTT (Actin FS) 34.6 SECONDS (26.0-38.0) 12/31/18 11:25 Sodium 136 mEq/L (136-145) 01/04/19 05:40 Potassium 3.6 mEq/L (3.5-5.1) 01/04/19 05:40 Chloride 104 mEq/L (98-107) 01/04/19 05:40 Carbon Dioxide 28.1 mEq/L (21.0-31.0) 01/04/19 05:40 Anion Gap 7.5 (7.0-16.0) 01/04/19 05:40 BUN 6 mg/dL (7-25) L 01/04/19 05:40 Creatinine 0.7 mg/dL (0.7-1.3) 01/04/19 05:40 Est GFR ( Amer) > 60.0 ml/min (>90) 01/04/19 05:40 Est GFR (Non-Af Amer) > 60.0 ml/min 01/04/19 05:40 BUN/Creatinine Ratio 8.6 01/04/19 05:40 Glucose 101 mg/dL (70-105) 01/04/19 05:40 Whole Bld Lactic Acid 0.97 mmol/L (0.60-1.99) 12/31/18 11:25 Calcium 8.1 mg/dL (8.6-10.3) L 01/04/19 05:40 Total Bilirubin 0.8 mg/dL (0.3-1.0) 12/31/18 11:25 AST 14 U/L (13-39) 12/31/18 11:25 ALT 7 U/L (7-52) 12/31/18 11:25 Alkaline Phosphatase 102 U/L (34-104) 12/31/18 11:25 Creatine Kinase 60 U/L (30-223) 12/31/18 11:25 Troponin I < 0.01 ng/mL (0.01-0.05) L 12/31/18 11:25 Total Protein 6.6 gm/dL (6.0-8.3) 12/31/18 11:25 Albumin 3.5 gm/dL (4.2-5.5) L 12/31/18 11:25 Globulin 3.1 gm/dL 12/31/18 11:25 Albumin/Globulin Ratio 1.1 (1.0-1.8) 12/31/18 11:25 Amylase 55 U/L (29-103) 12/31/18 11:25 Lipase 17 U/L (11-82) 12/31/18 11:25 Urine Source MIDSTREAM 12/31/18 14:30 Urine Color YELLOW 12/31/18 14:30 Urine Clarity CLEAR (CLEAR) 12/31/18 14:30 Urine pH 6.0 (4.6 - 8.0) 12/31/18 14:30 Ur Specific [place] >= 1.030 (1.005-1.030) 12/31/18 14:30 Urine Protein TRACE mg/dL (NEGATIVE) 12/31/18 14:30 Urine Glucose (UA) NEGATIVE mg/dL (NEGATIVE) 12/31/18 14:30 Urine Ketones 15 mg/dL (NEGATIVE) H 12/31/18 14:30 Urine Blood NEGATIVE (NEGATIVE) 12/31/18 14:30 Urine Nitrate NEGATIVE (NEGATIVE) 12/31/18 14:30 Urine Bilirubin MODERATE (NEGATIVE) H 12/31/18 14:30 Urine Ictotest NEGATIVE (NEGATIVE) 12/31/18 14:30 Urine Urobilinogen 1.0 E.U./dL (0.2 - 1.0) 12/31/18 14:30 Ur Leukocyte Esterase NEGATIVE (NEGATIVE) 12/31/18 14:30 Urine RBC NONE SEEN /hpf (0-5) 12/31/18 14:30 Urine WBC NONE SEEN /hpf (0-5) 12/31/18 14:30 Ur Epithelial Cells NONE SEEN /lpf (FEW) 12/31/18 14:30 Urine Bacteria NONE SEEN /hpf (NONE SEEN) 12/31/18 14:30 Urine Mucus MANY /lpf (FEW) 12/31/18 14:30 Urine Sperm FEW /hpf (NONE SEEN) 12/31/18 14:30 - Physical Exam Vitals and I&O: Vital Signs Temp 97.3 F 01/04/19 08:00 Pulse 64 01/04/19 08:00 Resp 19 01/04/19 08:00 BP 89/50 01/04/19 08:00 Pulse Ox 90 01/04/19 08:00 Intake & Output 01/03/19 01/04/19 01/04/19 18:59 06:59 18:59 Intake Total 2200 2210.833 Output Total 1400 Balance 2200 810.833 Weight (lbs) 99.79 kg 100.244 kg Intake: Intake, IV Amount 1000 1970.833 D5-0.45NS 1,000 ml @ 125 1000 1970.833 mls/hr IV .Q8H [facility] Rx#: [id number] Oral 1200 240 Output: Urine 1400 Other: # Voids 7 # Bowel Movements 3 1 Weight Source Bedscale Bedscale Active Medications: Current Medications Atorvastatin Calcium (Lipitor) 40 mg PO DAILY [facility]; Protocol Stop: 03/02/19 17:44 Last Admin: 01/04/19 09:30 Dose: 40 mg Donepezil HCl (Aricept) 10 mg PO DAILY [facility] Stop: 03/02/19 17:29 Last Admin: 01/04/19 09:30 Dose: 10 mg Escitalopram Oxalate (Lexapro) 10 mg PO DAILY [facility]; Protocol Stop: 03/02/19 17:14 Last Admin: 01/04/19 09:30 Dose: 10 mg Folic Acid (Folate) 1 mg PO DAILY [facility] Stop: 03/02/19 17:14 Last Admin: 01/04/19 09:30 Dose: 1 mg Dextrose/Sodium Chloride (D5-0.45ns) 1,000 mls @ 125 mls/hr IV .Q8H [facility] Stop: 03/01/19 23:37 Last Admin: 01/04/19 06:43 Dose: 125 mls/hr Pantoprazole Sodium (Protonix) 40 mg PO QDAC [facility] Stop: 03/04/19 09:14 Last Admin: 01/04/19 06:37 Dose: 40 mg Risperidone (Risperdal) 3 mg PO DAILY [facility]; Protocol Stop: 03/02/19 17:29 Last Admin: 01/04/19 09:31 Dose: 3 mg Rivaroxaban (Xarelto) 20 mg PO DAILY [facility] Stop: 03/02/19 17:14 Last Admin: 01/04/19 09:31 Dose: 20 mg Trazodone HCl (Desyrel) 100 mg PO HS [facility]; Protocol Stop: 03/02/19 20:59 Last Admin: 01/03/19 20:47 Dose: 100 mg General: Alert, Oriented x3 HEENT: Atraumatic Neck: Supple Cardiovascular: Regular rate Abdomen: Bowel sounds, Soft, no Tender, no Hepatomegaly, no Splenomegaly, no Distended, no Rebound, no Mass Assessment/Plan - Assessment Assessment: # Hiatal hernia # Fatigue Large hiatal hernia seen on imaging. However, this does not appear to be clinically apparent. KUB shows contrast clearance. Plan: - EGD not necessary unless pt develops symptoms related to his hernia. Even then , endoscopy can not treat this; he would require surgical consultation - diet as tolerated - other mgmt as per primary GI will sign off, please call with any questions
--- NOTE | 2019-01-04 20:46 | Progress Notes ---
DATE: 01/04/2019 Case was discussed with staff of the patient, reviewed records. The patient is calm and cooperative. He believes his medication is working well for him with a history of schizophrenia. He came because of hiatal hernia. He is sleeping better. He denies any current intent to harm himself or anyone. He denies any current auditory or visual hallucination. He said they come and go, but currently happy with his medication. No side effects with the medication, no sedation, no nausea, no extrapyramidal symptoms. The patient needs follow up with the psychiatrist upon discharge. Thank you very much for allowing me to participate in the care of this most interesting lady. JOB# [id number]
--- NOTE | 2019-01-04 21:08 | Progress Notes ---
DATE: 01/04/2019 SUBJECTIVE: The patient was seen in his room. The patient denies any pain or discomfort. Otherwise, the patient is in no acute distress. OBJECTIVE: VITAL SIGNS: Temperature 97.5, heart rate 62, blood pressure 98/58, respiration 18, 97% on room air. HEENT: Head is atraumatic and normocephalic. Eyes: Bilateral conjunctivae are clear. Bilateral pupils are equally round and reactive. NECK: Supple. No JVD. CARDIOVASCULAR: S1 and S2, without murmur. PULMONARY: Clear to auscultation. GASTROINTESTINAL: Soft and nontender without guarding. Positive bowel sounds. MUSCULOSKELETAL: No clubbing. No cyanosis noted. ASSESSMENT: Large hiatal hernia. PLAN: The patient underwent a GI series yesterday. It was negative. We are waiting for EGD that was done in [facility] this year. We will have it evaluated by the GI doctor. If negative, the patient may be discharged to assisted facility. Treatment plans were discussed with the patient's nurse. Treatment plans were discussed with Dr. Hughes. JOB# [id number]
[2019-01-05] MEDS: Pantoprazole 40 mg EC Tab PO SCH (06:34)
[2019-01-05] MEDS: D5-0.45NS 1,000 ML IV SCH ×3 (07:56→23:21)
[2019-01-05] MEDS: Atorvastatin Calcium 10 MG TAB PO SCH (08:04)
--- NOTE | 2019-01-05 10:39 | Internal Medicine Prog Note ---
Internal Medicine Subjective - Subjective Patient is:: awake, verbal, in bed Patient Complaints of:: other (Large Hiatal hernia.) Per staff patient has:: no adverse event, no episodes of fall, tolerating meds Internal Medicine Objective - Results Result Diagrams: 01/04/19 05:40 01/04/19 05:40 Recent Labs: Laboratory Last Values WBC 7.1 Th/cmm (4.8-10.8) 01/04/19 05:40 RBC 5.27 Mil/cmm (3.80-5.80) 01/04/19 05:40 Hgb 16.0 gm/dL (12-16) 01/04/19 05:40 Hct 48.5 % (41.0-60) 01/04/19 05:40 MCV 91.9 fl (80-99) 01/04/19 05:40 MCH 30.4 pg (27.0-31.0) 01/04/19 05:40 MCHC Differential 33.0 pg (28.0-36.0) 01/04/19 05:40 RDW 13.1 % (11.5-20.0) 01/04/19 05:40 Plt Count 190 Th/cmm (150-400) 01/04/19 05:40 MPV 10.1 fl 01/04/19 05:40 Neutrophils % 63.7 % (40.0-80.0) 01/04/19 05:40 Lymphocytes % 25.2 % (20.0-50.0) 01/04/19 05:40 Monocytes % 7.4 % (2.0-10.0) 01/04/19 05:40 Eosinophils % 3.5 % (0.0-5.0) 01/04/19 05:40 Basophils % 0.2 % (0.0-2.0) 01/04/19 05:40 PT 12.8 SECONDS (9.5-11.5) H 12/31/18 11:25 INR 1.24 (0.5-1.4) 12/31/18 11:25 PTT (Actin FS) 34.6 SECONDS (26.0-38.0) 12/31/18 11:25 Sodium 136 mEq/L (136-145) 01/04/19 05:40 Potassium 3.6 mEq/L (3.5-5.1) 01/04/19 05:40 Chloride 104 mEq/L (98-107) 01/04/19 05:40 Carbon Dioxide 28.1 mEq/L (21.0-31.0) 01/04/19 05:40 Anion Gap 7.5 (7.0-16.0) 01/04/19 05:40 BUN 6 mg/dL (7-25) L 01/04/19 05:40 Creatinine 0.7 mg/dL (0.7-1.3) 01/04/19 05:40 Est GFR ( Amer) > 60.0 ml/min (>90) 01/04/19 05:40 Est GFR (Non-Af Amer) > 60.0 ml/min 01/04/19 05:40 BUN/Creatinine Ratio 8.6 01/04/19 05:40 Glucose 101 mg/dL (70-105) 01/04/19 05:40 Whole Bld Lactic Acid 0.97 mmol/L (0.60-1.99) 12/31/18 11:25 Calcium 8.1 mg/dL (8.6-10.3) L 01/04/19 05:40 Total Bilirubin 0.8 mg/dL (0.3-1.0) 12/31/18 11:25 AST 14 U/L (13-39) 12/31/18 11:25 ALT 7 U/L (7-52) 12/31/18 11:25 Alkaline Phosphatase 102 U/L (34-104) 12/31/18 11:25 Creatine Kinase 60 U/L (30-223) 12/31/18 11:25 Troponin I < 0.01 ng/mL (0.01-0.05) L 12/31/18 11:25 Total Protein 6.6 gm/dL (6.0-8.3) 12/31/18 11:25 Albumin 3.5 gm/dL (4.2-5.5) L 12/31/18 11:25 Globulin 3.1 gm/dL 12/31/18 11:25 Albumin/Globulin Ratio 1.1 (1.0-1.8) 12/31/18 11:25 Amylase 55 U/L (29-103) 12/31/18 11:25 Lipase 17 U/L (11-82) 12/31/18 11:25 Urine Source MIDSTREAM 12/31/18 14:30 Urine Color YELLOW 12/31/18 14:30 Urine Clarity CLEAR (CLEAR) 12/31/18 14:30 Urine pH 6.0 (4.6 - 8.0) 12/31/18 14:30 Ur Specific [place] >= 1.030 (1.005-1.030) 12/31/18 14:30 Urine Protein TRACE mg/dL (NEGATIVE) 12/31/18 14:30 Urine Glucose (UA) NEGATIVE mg/dL (NEGATIVE) 12/31/18 14:30 Urine Ketones 15 mg/dL (NEGATIVE) H 12/31/18 14:30 Urine Blood NEGATIVE (NEGATIVE) 12/31/18 14:30 Urine Nitrate NEGATIVE (NEGATIVE) 12/31/18 14:30 Urine Bilirubin MODERATE (NEGATIVE) H 12/31/18 14:30 Urine Ictotest NEGATIVE (NEGATIVE) 12/31/18 14:30 Urine Urobilinogen 1.0 E.U./dL (0.2 - 1.0) 12/31/18 14:30 Ur Leukocyte Esterase NEGATIVE (NEGATIVE) 12/31/18 14:30 Urine RBC NONE SEEN /hpf (0-5) 12/31/18 14:30 Urine WBC NONE SEEN /hpf (0-5) 12/31/18 14:30 Ur Epithelial Cells NONE SEEN /lpf (FEW) 12/31/18 14:30 Urine Bacteria NONE SEEN /hpf (NONE SEEN) 12/31/18 14:30 Urine Mucus MANY /lpf (FEW) 12/31/18 14:30 Urine Sperm FEW /hpf (NONE SEEN) 12/31/18 14:30 - Physical Exam Vitals and I&O: Vital Signs Temp 96.6 F 01/05/19 08:00 Pulse 63 01/05/19 08:00 Resp 18 01/05/19 08:00 BP 107/64 01/05/19 08:00 Pulse Ox 93 01/05/19 08:00 Intake & Output 01/04/19 01/05/19 01/05/19 18:59 06:59 18:59 Intake Total 1750 2274.583 Output Total 2300 Balance 1750 -25.417 Weight (lbs) 221 lb 221 lb Intake: Intake, IV Amount 1000 1914.583 D5-0.45NS 1,000 ml @ 125 1000 1914.583 mls/hr IV .Q8H [facility] Rx#: [id number] Oral 750 360 Output: Urine 2300 Other: # Voids 6 # Bowel Movements 1 Weight Source Bedscale Patient stated Active Medications: Current Medications Atorvastatin Calcium (Lipitor) 40 mg PO DAILY [facility]; Protocol Stop: 03/02/19 17:44 Last Admin: 01/05/19 08:04 Dose: 40 mg Donepezil HCl (Aricept) 10 mg PO DAILY [facility] Stop: 03/02/19 17:29 Last Admin: 01/05/19 08:04 Dose: 10 mg Escitalopram Oxalate (Lexapro) 10 mg PO DAILY [facility]; Protocol Stop: 03/02/19 17:14 Last Admin: 01/05/19 08:03 Dose: 10 mg Folic Acid (Folate) 1 mg PO DAILY [facility] Stop: 03/02/19 17:14 Last Admin: 01/05/19 08:04 Dose: 1 mg Dextrose/Sodium Chloride (D5-0.45ns) 1,000 mls @ 125 mls/hr IV .Q8H [facility] Stop: 03/01/19 23:37 Last Admin: 01/05/19 07:56 Dose: 125 mls/hr Pantoprazole Sodium (Protonix) 40 mg PO QDAC [facility] Stop: 03/04/19 09:14 Last Admin: 01/05/19 06:34 Dose: 40 mg Risperidone (Risperdal) 3 mg PO DAILY [facility]; Protocol Stop: 03/02/19 17:29 Last Admin: 01/05/19 08:04 Dose: 3 mg Rivaroxaban (Xarelto) 20 mg PO DAILY [facility] Stop: 03/02/19 17:14 Last Admin: 01/05/19 08:04 Dose: 20 mg Trazodone HCl (Desyrel) 100 mg PO HS [facility]; Protocol Stop: 03/02/19 20:59 Last Admin: 01/04/19 20:21 Dose: 100 mg General: weak HEENT: NC/AT, PERRLA Neck: Supple, No JVD Lungs: CTAB Cardiovascular: RRR, Normal S1, Normal S2 Abdomen: soft, non-tender, non-distended Extremities: excoriation Neurological: no change, alert Internal Medicine Assmt/Plan - Assessment Assessment: Hiatal Hernia HTN - Plan Plan: Continue current treatment plan. Monitor Labs.Continue current medications Continue to monitor VS Monitor Diet/Nutritional support. Pain Management. PT/OT prn Safety precaution, Fall precaution, frequent nursing round. Supportive care. Continue collaborating with consulting specialists, case management and nursing team. Appreciate consulting team recs. Awaiting EGD results from [facility] Disposition: possible discharge pending EGD result from [facility].
--- NOTE | 2019-01-05 22:48 | Progress Notes ---
DATE: 01/05/2019 SUBJECTIVE: Case was discussed with staff of the patient, reviewed records. The patient continues to be much more stable. His medical symptoms are improving. He is sleeping better, eating better. He denies any current intent to harm himself or anyone. He denies any auditory or visual hallucinations, paranoia. No side effects with the medication, no sedation, no nausea, and no extrapyramidal symptoms. He was seen by Gastroenterology. He is tolerating the diet so far. The patient will follow up with the psychiatrist on discharge. Thank you very much for allowing me to participate in the care of this most interesting gentleman. JOB# [id number]
[2019-01-06] MEDS: Pantoprazole 40 mg EC Tab PO SCH (06:33)
[2019-01-06] MEDS: Atorvastatin Calcium 10 MG TAB PO SCH (08:32)
--- NOTE | 2019-01-06 10:48 | Internal Medicine Prog Note ---
Internal Medicine Subjective - Subjective Service Date: 01/06/19 Patient seen and examined:: with staff Patient is:: awake, verbal, in bed Patient Complaints of:: other (Large Hiatal hernia.) Per staff patient has:: no adverse event, no episodes of fall, tolerating meds Internal Medicine Objective - Results Result Diagrams: 01/04/19 05:40 01/04/19 05:40 Recent Labs: Laboratory Last Values WBC 7.1 Th/cmm (4.8-10.8) 01/04/19 05:40 RBC 5.27 Mil/cmm (3.80-5.80) 01/04/19 05:40 Hgb 16.0 gm/dL (12-16) 01/04/19 05:40 Hct 48.5 % (41.0-60) 01/04/19 05:40 MCV 91.9 fl (80-99) 01/04/19 05:40 MCH 30.4 pg (27.0-31.0) 01/04/19 05:40 MCHC Differential 33.0 pg (28.0-36.0) 01/04/19 05:40 RDW 13.1 % (11.5-20.0) 01/04/19 05:40 Plt Count 190 Th/cmm (150-400) 01/04/19 05:40 MPV 10.1 fl 01/04/19 05:40 Neutrophils % 63.7 % (40.0-80.0) 01/04/19 05:40 Lymphocytes % 25.2 % (20.0-50.0) 01/04/19 05:40 Monocytes % 7.4 % (2.0-10.0) 01/04/19 05:40 Eosinophils % 3.5 % (0.0-5.0) 01/04/19 05:40 Basophils % 0.2 % (0.0-2.0) 01/04/19 05:40 PT 12.8 SECONDS (9.5-11.5) H 12/31/18 11:25 INR 1.24 (0.5-1.4) 12/31/18 11:25 PTT (Actin FS) 34.6 SECONDS (26.0-38.0) 12/31/18 11:25 Sodium 136 mEq/L (136-145) 01/04/19 05:40 Potassium 3.6 mEq/L (3.5-5.1) 01/04/19 05:40 Chloride 104 mEq/L (98-107) 01/04/19 05:40 Carbon Dioxide 28.1 mEq/L (21.0-31.0) 01/04/19 05:40 Anion Gap 7.5 (7.0-16.0) 01/04/19 05:40 BUN 6 mg/dL (7-25) L 01/04/19 05:40 Creatinine 0.7 mg/dL (0.7-1.3) 01/04/19 05:40 Est GFR ( Amer) > 60.0 ml/min (>90) 01/04/19 05:40 Est GFR (Non-Af Amer) > 60.0 ml/min 01/04/19 05:40 BUN/Creatinine Ratio 8.6 01/04/19 05:40 Glucose 101 mg/dL (70-105) 01/04/19 05:40 Whole Bld Lactic Acid 0.97 mmol/L (0.60-1.99) 12/31/18 11:25 Calcium 8.1 mg/dL (8.6-10.3) L 01/04/19 05:40 Total Bilirubin 0.8 mg/dL (0.3-1.0) 12/31/18 11:25 AST 14 U/L (13-39) 12/31/18 11:25 ALT 7 U/L (7-52) 12/31/18 11:25 Alkaline Phosphatase 102 U/L (34-104) 12/31/18 11:25 Creatine Kinase 60 U/L (30-223) 12/31/18 11:25 Troponin I < 0.01 ng/mL (0.01-0.05) L 12/31/18 11:25 Total Protein 6.6 gm/dL (6.0-8.3) 12/31/18 11:25 Albumin 3.5 gm/dL (4.2-5.5) L 12/31/18 11:25 Globulin 3.1 gm/dL 12/31/18 11:25 Albumin/Globulin Ratio 1.1 (1.0-1.8) 12/31/18 11:25 Amylase 55 U/L (29-103) 12/31/18 11:25 Lipase 17 U/L (11-82) 12/31/18 11:25 Urine Source MIDSTREAM 12/31/18 14:30 Urine Color YELLOW 12/31/18 14:30 Urine Clarity CLEAR (CLEAR) 12/31/18 14:30 Urine pH 6.0 (4.6 - 8.0) 12/31/18 14:30 Ur Specific [place] >= 1.030 (1.005-1.030) 12/31/18 14:30 Urine Protein TRACE mg/dL (NEGATIVE) 12/31/18 14:30 Urine Glucose (UA) NEGATIVE mg/dL (NEGATIVE) 12/31/18 14:30 Urine Ketones 15 mg/dL (NEGATIVE) H 12/31/18 14:30 Urine Blood NEGATIVE (NEGATIVE) 12/31/18 14:30 Urine Nitrate NEGATIVE (NEGATIVE) 12/31/18 14:30 Urine Bilirubin MODERATE (NEGATIVE) H 12/31/18 14:30 Urine Ictotest NEGATIVE (NEGATIVE) 12/31/18 14:30 Urine Urobilinogen 1.0 E.U./dL (0.2 - 1.0) 12/31/18 14:30 Ur Leukocyte Esterase NEGATIVE (NEGATIVE) 12/31/18 14:30 Urine RBC NONE SEEN /hpf (0-5) 12/31/18 14:30 Urine WBC NONE SEEN /hpf (0-5) 12/31/18 14:30 Ur Epithelial Cells NONE SEEN /lpf (FEW) 12/31/18 14:30 Urine Bacteria NONE SEEN /hpf (NONE SEEN) 12/31/18 14:30 Urine Mucus MANY /lpf (FEW) 12/31/18 14:30 Urine Sperm FEW /hpf (NONE SEEN) 12/31/18 14:30 - Physical Exam Vitals and I&O: Vital Signs Temp 97.4 F 01/06/19 08:00 Pulse 53 01/06/19 08:00 Resp 20 01/06/19 08:00 BP 109/54 01/06/19 08:00 Pulse Ox 95 01/06/19 08:00 Intake & Output 01/05/19 01/06/19 01/06/19 18:59 06:59 18:59 Intake Total 1700 1191.25 Output Total 2300 Balance 1700 -1108.75 Weight (lbs) 100.244 kg 100.244 kg Intake: Intake, IV Amount 1000 831.25 D5-0.45NS 1,000 ml @ 125 1000 831.25 mls/hr IV .Q8H [facility] Rx#: [id number] Oral 700 360 Output: Urine 2300 Other: # Voids 6 # Bowel Movements 1 Weight Source Bedscale Bedscale Active Medications: Current Medications Atorvastatin Calcium (Lipitor) 40 mg PO DAILY [facility]; Protocol Stop: 03/02/19 17:44 Last Admin: 01/06/19 08:32 Dose: 40 mg Donepezil HCl (Aricept) 10 mg PO DAILY [facility] Stop: 03/02/19 17:29 Last Admin: 01/06/19 08:32 Dose: 10 mg Escitalopram Oxalate (Lexapro) 10 mg PO DAILY [facility]; Protocol Stop: 03/02/19 17:14 Last Admin: 01/06/19 08:32 Dose: 10 mg Folic Acid (Folate) 1 mg PO DAILY [facility] Stop: 03/02/19 17:14 Last Admin: 01/06/19 08:32 Dose: 1 mg Dextrose/Sodium Chloride (D5-0.45ns) 1,000 mls @ 125 mls/hr IV .Q8H [facility] Stop: 03/01/19 23:37 Last Admin: 01/05/19 23:21 Dose: 125 mls/hr Pantoprazole Sodium (Protonix) 40 mg PO QDAC [facility] Stop: 03/04/19 09:14 Last Admin: 01/06/19 06:33 Dose: 40 mg Risperidone (Risperdal) 3 mg PO DAILY [facility]; Protocol Stop: 03/02/19 17:29 Last Admin: 01/06/19 08:32 Dose: 3 mg Rivaroxaban (Xarelto) 20 mg PO DAILY [facility] Stop: 03/02/19 17:14 Last Admin: 01/06/19 08:31 Dose: 20 mg Trazodone HCl (Desyrel) 100 mg PO HS [facility]; Protocol Stop: 03/02/19 20:59 Last Admin: 01/05/19 21:19 Dose: 100 mg Physical Exam: Patient has Large hiatal hernia, he is eating and sleeping better. General: weak HEENT: NC/AT, PERRLA Neck: Supple, No JVD Lungs: CTAB Cardiovascular: RRR, Normal S1, Normal S2 Abdomen: soft, non-tender, non-distended Extremities: excoriation Neurological: no change, alert Internal Medicine Assmt/Plan - Assessment Assessment: Large hiatal hernia. Hypertension. - Plan Plan: Continuation of care. Monitor Labs. Continue present meds as directed. Monitor Diet/Nutritional support. Pain Management. Physical therapy/Occupational therapy prn. Safety precaution. Supportive care. Fall precaution, frequent nursing rounds, and as needed restraints to prevent fall. Continue collaborating with consulting specialists, case management and nursing team. Will Monitor patient and continue present care management. Nutritional Asmnt/Malnutr-PDOC - Dietary Evaluation Malnutrition Findings (Please click <Entered> for more info): see orders.
[2019-01-06] MEDS: D5-0.45NS 1,000 ML IV SCH ×2 (11:30→19:30)
[2019-01-07] MEDS: D5-0.45NS 1,000 ML IV SCH ×2 (03:30→14:24)
[2019-01-07] MEDS: Pantoprazole 40 mg EC Tab PO SCH (07:09)
--- NOTE | 2019-01-07 15:36 | Internal Medicine Prog Note ---
Internal Medicine Subjective - Subjective Service Date: 01/07/19 Patient seen and examined:: with staff Patient is:: awake, verbal, in bed Patient Complaints of:: other (Large Hiatal hernia.) Per staff patient has:: no adverse event, no episodes of fall, tolerating meds Internal Medicine Objective - Results Result Diagrams: 01/04/19 05:40 01/04/19 05:40 Recent Labs: Laboratory Last Values WBC 7.1 Th/cmm (4.8-10.8) 01/04/19 05:40 RBC 5.27 Mil/cmm (3.80-5.80) 01/04/19 05:40 Hgb 16.0 gm/dL (12-16) 01/04/19 05:40 Hct 48.5 % (41.0-60) 01/04/19 05:40 MCV 91.9 fl (80-99) 01/04/19 05:40 MCH 30.4 pg (27.0-31.0) 01/04/19 05:40 MCHC Differential 33.0 pg (28.0-36.0) 01/04/19 05:40 RDW 13.1 % (11.5-20.0) 01/04/19 05:40 Plt Count 190 Th/cmm (150-400) 01/04/19 05:40 MPV 10.1 fl 01/04/19 05:40 Neutrophils % 63.7 % (40.0-80.0) 01/04/19 05:40 Lymphocytes % 25.2 % (20.0-50.0) 01/04/19 05:40 Monocytes % 7.4 % (2.0-10.0) 01/04/19 05:40 Eosinophils % 3.5 % (0.0-5.0) 01/04/19 05:40 Basophils % 0.2 % (0.0-2.0) 01/04/19 05:40 PT 12.8 SECONDS (9.5-11.5) H 12/31/18 11:25 INR 1.24 (0.5-1.4) 12/31/18 11:25 PTT (Actin FS) 34.6 SECONDS (26.0-38.0) 12/31/18 11:25 Sodium 136 mEq/L (136-145) 01/04/19 05:40 Potassium 3.6 mEq/L (3.5-5.1) 01/04/19 05:40 Chloride 104 mEq/L (98-107) 01/04/19 05:40 Carbon Dioxide 28.1 mEq/L (21.0-31.0) 01/04/19 05:40 Anion Gap 7.5 (7.0-16.0) 01/04/19 05:40 BUN 6 mg/dL (7-25) L 01/04/19 05:40 Creatinine 0.7 mg/dL (0.7-1.3) 01/04/19 05:40 Est GFR ( Amer) > 60.0 ml/min (>90) 01/04/19 05:40 Est GFR (Non-Af Amer) > 60.0 ml/min 01/04/19 05:40 BUN/Creatinine Ratio 8.6 01/04/19 05:40 Glucose 101 mg/dL (70-105) 01/04/19 05:40 Whole Bld Lactic Acid 0.97 mmol/L (0.60-1.99) 12/31/18 11:25 Calcium 8.1 mg/dL (8.6-10.3) L 01/04/19 05:40 Total Bilirubin 0.8 mg/dL (0.3-1.0) 12/31/18 11:25 AST 14 U/L (13-39) 12/31/18 11:25 ALT 7 U/L (7-52) 12/31/18 11:25 Alkaline Phosphatase 102 U/L (34-104) 12/31/18 11:25 Creatine Kinase 60 U/L (30-223) 12/31/18 11:25 Troponin I < 0.01 ng/mL (0.01-0.05) L 12/31/18 11:25 Total Protein 6.6 gm/dL (6.0-8.3) 12/31/18 11:25 Albumin 3.5 gm/dL (4.2-5.5) L 12/31/18 11:25 Globulin 3.1 gm/dL 12/31/18 11:25 Albumin/Globulin Ratio 1.1 (1.0-1.8) 12/31/18 11:25 Amylase 55 U/L (29-103) 12/31/18 11:25 Lipase 17 U/L (11-82) 12/31/18 11:25 Urine Source MIDSTREAM 12/31/18 14:30 Urine Color YELLOW 12/31/18 14:30 Urine Clarity CLEAR (CLEAR) 12/31/18 14:30 Urine pH 6.0 (4.6 - 8.0) 12/31/18 14:30 Ur Specific [place] >= 1.030 (1.005-1.030) 12/31/18 14:30 Urine Protein TRACE mg/dL (NEGATIVE) 12/31/18 14:30 Urine Glucose (UA) NEGATIVE mg/dL (NEGATIVE) 12/31/18 14:30 Urine Ketones 15 mg/dL (NEGATIVE) H 12/31/18 14:30 Urine Blood NEGATIVE (NEGATIVE) 12/31/18 14:30 Urine Nitrate NEGATIVE (NEGATIVE) 12/31/18 14:30 Urine Bilirubin MODERATE (NEGATIVE) H 12/31/18 14:30 Urine Ictotest NEGATIVE (NEGATIVE) 12/31/18 14:30 Urine Urobilinogen 1.0 E.U./dL (0.2 - 1.0) 12/31/18 14:30 Ur Leukocyte Esterase NEGATIVE (NEGATIVE) 12/31/18 14:30 Urine RBC NONE SEEN /hpf (0-5) 12/31/18 14:30 Urine WBC NONE SEEN /hpf (0-5) 12/31/18 14:30 Ur Epithelial Cells NONE SEEN /lpf (FEW) 12/31/18 14:30 Urine Bacteria NONE SEEN /hpf (NONE SEEN) 12/31/18 14:30 Urine Mucus MANY /lpf (FEW) 12/31/18 14:30 Urine Sperm FEW /hpf (NONE SEEN) 12/31/18 14:30 - Physical Exam Vitals and I&O: Vital Signs Temp 97.0 F 01/07/19 12:00 Pulse 67 01/07/19 13:12 Resp 18 01/07/19 13:12 BP 101/69 01/07/19 12:00 Pulse Ox 95 01/07/19 13:12 Intake & Output 01/06/19 01/07/19 01/07/19 18:59 06:59 18:59 Intake Total 1720 2512.5 687.5 Output Total 3100 Balance 1720 -587.5 687.5 Weight (lbs) 100.244 kg 100.244 kg Intake: Intake, IV Amount 1000 2312.5 687.5 D5-0.45NS 1,000 ml @ 125 1000 2312.5 687.5 mls/hr IV .Q8H [facility] Rx#: [id number] Oral 720 200 Output: Urine 3100 Other: # Voids 4 Weight Source Bedscale Bedscale Active Medications: Current Medications Atorvastatin Calcium (Lipitor) 40 mg PO DAILY [facility]; Protocol Stop: 03/02/19 08:59 Last Admin: 01/07/19 08:29 Dose: 40 mg Donepezil HCl (Aricept) 10 mg PO DAILY [facility] Stop: 03/02/19 17:29 Last Admin: 01/07/19 08:30 Dose: 10 mg Escitalopram Oxalate (Lexapro) 10 mg PO DAILY [facility]; Protocol Stop: 03/02/19 17:14 Last Admin: 01/07/19 08:29 Dose: 10 mg Folic Acid (Folate) 1 mg PO DAILY [facility] Stop: 03/02/19 17:14 Last Admin: 01/07/19 08:30 Dose: 1 mg Dextrose/Sodium Chloride (D5-0.45ns) 1,000 mls @ 125 mls/hr IV .Q8H [facility] Stop: 03/01/19 23:37 Last Admin: 01/07/19 14:24 Dose: 125 mls/hr Pantoprazole Sodium (Protonix) 40 mg PO QDAC [facility] Stop: 03/04/19 09:14 Last Admin: 01/07/19 07:09 Dose: 40 mg Risperidone (Risperdal) 3 mg PO DAILY [facility]; Protocol Stop: 03/02/19 17:29 Last Admin: 01/07/19 08:30 Dose: 3 mg Rivaroxaban (Xarelto) 20 mg PO DAILY [facility] Stop: 03/02/19 17:14 Last Admin: 01/07/19 08:30 Dose: 20 mg Trazodone HCl (Desyrel) 100 mg PO HS [facility]; Protocol Stop: 03/02/19 20:59 Last Admin: 01/06/19 21:00 Dose: Not Given Physical Exam: Patient has Large hiatal hernia, he is tolerating diet, Improving, more stable. General: weak HEENT: NC/AT, PERRLA Neck: Supple, No JVD Lungs: CTAB Cardiovascular: RRR, Normal S1, Normal S2 Abdomen: soft, non-tender, non-distended Extremities: excoriation Neurological: no change, alert Internal Medicine Assmt/Plan - Assessment Assessment: Large hiatal hernia. Hypertension. - Plan Plan: Continuation of care. Monitor Labs. Continue present meds as directed. Monitor Diet/Nutritional support. Pain Management. Physical therapy/Occupational therapy prn. Safety precaution. Supportive care. Fall precaution, frequent nursing rounds, and as needed restraints to prevent fall. Continue collaborating with consulting specialists, case management and nursing team. Will Monitor patient and continue present care management. Nutritional Asmnt/Malnutr-PDOC - Dietary Evaluation Malnutrition Findings (Please click <Entered> for more info): Nutritional Asmnt/Malnutrition Start: 01/06/19 14: 06 Text: Status: Active Freq: Protocol: Document 01/06/19 14:06 PAWAN (Rec: 01/06/19 14:09 PAWAN [id number]) Nutritional Asmnt/Malnutrition Patient General Information Nutritional Screening Low Risk Diagnosis Dehydration, Hypotension Pertinent Medical Hx/Surgical Hx HTN, Lg Hiatal Hernia Subjective Information Pt is a 57-year-old male admitted on 12/31 c/o weakness and fatigue x 3 days. Pt was found to have a large hiatal hernia, GI consult was ordered . Per GI progress note- EGD not necessary unless pt develops symptoms related to his hernia. Pt is eating 50-75 % meals per Meal/Nutrition Activity Record. Visited Pt at bedside, stated he lives at a [facility] and they provide his meals for him. He stated he does not think he is on any restricted diet. Asked Pt to talk to facility to perhaps be placed on a low-fat diet. Not sure if Pt understood, he was quiet and seemed a little unfocused. HT: 511 WT: 221 LB (100.45 kg) ABW: 184 LB (83.75 kg) BMI: 30.82 (Obese) GI: WNL, non-tender, round BM: 01/06 x1 I/O: 1000/Not Noted Skin: WNL, pink, warm, dry, elastic, intact Nilay: 20 Diet Order: Regular Estimated Energy Needs: (Obese , ABW) 0769-3816 kcals (20-25 kcals/ kg) 84-100g Pro (1.0-1.2 g/kg) 2033-8617 ml (25-30 ml/kg) Pt is eating 50-75% of meals Per Meal/Nutrition Activity Record. Dietary is currently providing an estimated 2150 kcals and 92 gm Pro, per Pt PO intake this is providing an estimated 1344 kcals and 58gm Pro to meet 80% kcal and 69% Pro needs. Will continue to monitor PO intake- goal to meet 75% estimated nutritional needs. Current Diet Order/ Nutrition Support Regular Pertinent Medications Lipitor, D5-0.45ns, Folate, Protonix Pertinent Labs 01/04: BUN/Cr 6/0.7, Ca 8.1 12/31: Alb 3.5, Trp <0.01 (lab values not retested) Nutritional Hx/Data Height 1.8 m Height (Calculated Centimeters) 180.3 Current Weight (lbs) 100.244 kg Weight (Calculated Kilograms) 100.2 Weight (Calculated Grams) 327670.9 [place] Body Weight 172 LB (78.18 kg) % [place] Body Weight 128 Body Mass Index (BMI) 30.8 Weight Status Obese GI Symptoms GI Symptoms None Last BM 01/06 x1 Skin Integrity/Comment: Skin: WNL, pink, warm, dry, elastic, intact Nilay: 20 Current %PO Fair (50-74%) Estimated Nutritional Goals BEE in Kcals: Adj wt of IBW Calories/Kcals/Kg 20-25 Kcals Calculated 1626-4260 Protein: Adj wt of IBW Protein g/k.0-1.2 Protein Calculated 84-100 Fluid: ml 8027-1326 ml (25-30 ml/kg) Nutritional Problem 1. Problem Problem Obesity Etiology r/t energy overconsumption Signs/Symptoms: aeb BMI 30.82. Intervention/Recommendation Comments Continue with Regular diet as ordered. Expected Outcomes/Goals Expected Outcomes/Goals 1. PO intake to meet 75% of nutritional needs. 2. Monitor PO intake, wt, nutrition related labs, and skin integrity. 3. F/U as low risk in 7 days, 01/13
--- NOTE | 2019-01-07 23:52 | Progress Notes ---
DATE: 01/07/2019 Case was discussed with staff of the patient, reviewed records. The patient continues to do the same. He denies any intent to harm himself or anyone. He reported the voices are not prominent. He is sleeping well, eating well. No side effects from the medication, no sedation, no nausea, no extrapyramidal symptoms. The patient will follow up with psychiatrist upon discharge. Thank you very much for allowing me to participate in the care of this most interesting gentleman. JOB# [id number]
[2019-01-08] MEDS: Pantoprazole 40 mg EC Tab PO SCH (06:30)
--- NOTE | 2019-01-08 13:10 | Progress Notes ---
DATE: Case was discussed with staff of the patient, reviewed records. The patient continues to be stable. No acting out behavior. He denies any intent to harm himself or anyone. Sleeping well, eating well. No side effects of the medication, no sedation, no nausea. No side effects from the medication. The patient needs to see a psychiatrist upon discharge. So far, he seems to be more stable medically. Thank you very much for allowing me to participate in the care of this most interesting gentleman. JOB# [id number]
--- NOTE | 2019-01-13 18:46 | Discharge Summary ---
DATE OF DISCHARGE: 01/08/2019 HOSPITAL COURSE: The patient was admitted on 12/31/2018 to [facility]. On 01/08/2019, the patient went to [place]. The patient admitted because of the large hiatal hernia, hypertension and abdominal pain. The patient was worked up and the surgeon decided he needed to have his hernia repairs as an outpatient and schedule surgery. The patient was also confused and has had psychiatric consultation and was put on medication to control the area. The patient improved. FINAL DIAGNOSES: Large hiatal hernia and persisting hypertension, controlled and history of psych disorder under control. The patient was sent to [place] where I will follow the patient. CONDITION AT THE TIME OF DISCHARGE: Stable. MEDICATIONS: See the reconciliation sheet. ACTIVITY: As tolerated. DIET: As noted in the chart. JOB# [id number]
== END 2019-01-08 14:15 | DRG 315 ==
LOC: ER 10:49 → MSI 18:22
PROVIDERS: ADMIT Internal Medicine; ATTEND Internal Medicine
DX: I95.9 Hypotension, unspecified (principal); E87.1 Hypo-osmolality and hyponatremia; K44.9 Diaphragmatic hernia without obstruction or gangrene; I10 Essential (primary) hypertension; E88.09 Other disorders of plasma-protein metabolism, not elsewhere classified; E86.0 Dehydration; F25.1 Schizoaffective disorder, depressive type
CPT/HCPCS: 36415-UA; 71045-TC; 74000-TC; 80048-TC; 80053-TC; 81001-TC; 82150-TC; 82550-TC; 83605; 83690-TC; 84484-TC; 85025-TC; 85610-TC; 85730-TC; 93005; 94760; J7030; Z7610

== ENCOUNTER 2019-06-06 17:20 | Inpatient (IN) | payer MEDICARE ==
[2019-06-07] MEDS ORDERED: Magnesium Hydroxide (MOM) 30 mL UDC PO PRN (02:32)
[2019-06-07] MEDS ORDERED: Maalox 30 mL Cup PO PRN (02:32)
[2019-06-07 02:33] VITALS: BP 95/64
[2019-06-07] MEDS: Multivitamin Tab PO SCH (08:52)
[2019-06-07] MEDS: Escitalopram Oxalate 5 mg Tab PO SCH (13:15)
--- NOTE | 2019-06-08 02:31 | Psychiatric Evaluation ---
DATE OF SERVICE: 06/07/2019 INITIAL PSYCHIATRIC EVALUATION Covering for Dr. Samuel. CHIEF COMPLAINT: Depression. HISTORY OF PRESENT ILLNESS: A 68-year-old male brought in here from [facility] after the patient was observed from a half-way to be depressed and confusion. He had been refusing medications and he had been experiencing abdominal pain. Today on [id number] evaluation, the patient is distraught, does not know why he is here, mild to moderate latency to answer questions, does not know what medication, he does not know where he is coming from, sad, depression is endorsed, no auditory or visual hallucinations. PAST MEDICAL HISTORY: Per medical records, insignificant. ALLERGIES TO MEDICATIONS: NKDA. PAST SURGICAL HISTORY: Back surgery in the past. PAST PSYCHIATRIC HISTORY: History of depression. SOCIAL HISTORY: Denies any illicit drug use. Denies any alcohol use. Currently lives at home. PAST FAMILY PSYCHIATRIC HISTORY: Denied. LEGAL HISTORY: Denied. CURRENT HOME MEDICATIONS: Include trazodone 100 mg at nighttime, Lexapro 10 mg, risperidone 3 mg, Aricept 10 mg. Although, noncompliant. MENTAL STATUS EXAMINATION: Uncooperative, anxious, congruent, flat affect, avoidant, disengaged, limited historian, unable to assess thought content and thought process due to the patient refusal. STRENGTHS: Good living situation. WEAKNESSES: Poor coping skills. PRIMARY DIAGNOSIS: Major depressive disorder. SECONDARY DIAGNOSES: Dementia. MEDICAL DIAGNOSIS: As noted above. ASSESSMENT AND PLAN: This is a 68-year-old male with a history of severe dementia, recently refusing medications and becoming more irritable. After reviewing the patient's medication regimen, we initiate Lexapro, monitor and obtain more collateral information, unclear of the patient's antipsychotic use. PLAN: 1. Admit the patient. 2. Continue with hold. 3. Add Lexapro 5 mg. 4. Monitor, obtain more collateral information. JOB# [id number]
[2019-06-08] MEDS: Escitalopram Oxalate 5 mg Tab PO SCH (08:49)
[2019-06-08] MEDS: Multivitamin Tab PO SCH (08:49)
--- NOTE | 2019-06-08 14:49 | History and Physical ---
History of Present Illness - HPI Vital Signs: Last Vital Signs Temp 98.6 F 06/08/19 06:45 Pulse 80 06/08/19 06:45 Resp 18 06/08/19 08:00 BP 107/68 06/08/19 06:45 Pulse Ox 98 06/08/19 06:45 Family Medical History - Family Member Mother History Unknown: Yes Ethnicity: Non- Living Status: Hx Family Coronary Artery Disease: Yes FATHER History Unknown: Yes Ethnicity: Non- Living Status: - Medications Home Medications: Home Medication Medication Instructions Recorded Type Atorvastatin Calcium [Lipitor] 40 mg PO DAILY tab 01/08/19 Rx Donepezil Hcl [Aricept] 10 mg PO DAILY tab 01/08/19 Rx Escitalopram Oxalate [Lexapro] 10 mg PO DAILY tab 01/08/19 Rx Folic Acid [Folate*] 1 mg PO DAILY tab 01/08/19 Rx Pantoprazole [Protonix] 40 mg PO QDAC ect 01/08/19 Rx Rivaroxaban [Xarelto] 20 mg PO DAILY tab 01/08/19 Rx risperiDONE [RisperDAL] 3 mg PO DAILY tab 01/08/19 Rx traZODone HCl [Desyrel*] 100 mg PO HS tab 01/08/19 Rx - Allergies Allergies/Adverse Reactions: Allergies Allergy/AdvReac Type Severity Reaction Status Date / Time No Known Allergies Allergy Verified 06/07/19 02:30
--- NOTE | 2019-06-08 15:36 | History & Physical ---
ADMIT DATE: 06/07/2019 HISTORY OF PRESENT ILLNESS: The patient is known to me from the facility. The patient is known to have a history of multiple medical problems including history of hypertension, history of hyperlipidemia and history of back surgery in the past, history of depression. He came in from [place] for severe depression and confusion, was admitted. Medical records were reviewed. PAST MEDICAL HISTORY: As enumerated before. PAST SURGICAL HISTORY: As enumerated with back surgery and history of depression. MEDICATIONS: Include trazodone and risperidone and Aricept for his dementia. PHYSICAL EXAMINATION: GENERAL: The patient is alert, oriented, little confused elderly male. HEAD: Normal. ENT: Normal. NECK: Supple, nontender. LUNGS: Clear. CARDIOVASCULAR SYSTEM: S1, S2 heard. ABDOMEN: Soft. Bowel sounds are heard. CENTRAL NERVOUS SYSTEM: The patient is confused. DIAGNOSES: Severe depression, history of hypertension, history of hyperlipidemia and status post back surgery in the past. ____. PLAN: I will follow him medically. We will have the psychiatrist to see the patient for his depression. JOB# [id number]
--- NOTE | 2019-06-08 18:06 | Progress Notes ---
DATE: SUBJECTIVE: The patient today on [id number], admits to hearing voices. He reports they are nasty, negative. MENTAL STATUS EXAMINATION: Command type auditory hallucinations. ASSESSMENT AND PLAN: Major depressive disorder, severe with psychosis. After reviewing reconciliation list from the detention, the patient had been on Lexapro 10 mg and risperidone 2 mg, although noncompliant. We will initiate risperidone at 1 mg and titrate as tolerated and increase Lexapro to 10. JOB# [id number]
[2019-06-09] MEDS: Pantoprazole 40 mg EC Tab PO SCH (06:44)
[2019-06-09] MEDS: Multivitamin Tab PO SCH (08:50)
--- NOTE | 2019-06-09 11:42 | Internal Medicine Prog Note ---
Internal Medicine Subjective - Subjective Service Date: 06/09/19 Patient seen and examined:: with staff, chart reviewed Patient is:: awake, in bed, confused Patient Complaints of:: other (Severely depressed.) Per staff patient has:: no adverse event, no episodes of fall Internal Medicine Objective - Physical Exam Vitals and I&O: Vital Signs Temp 98.4 F 06/09/19 05:39 Pulse 58 06/09/19 05:39 Resp 20 06/09/19 08:00 BP 108/61 06/09/19 05:39 Pulse Ox 98 06/09/19 05:39 Intake & Output 06/08/19 06/09/19 06/09/19 18:59 06:59 18:59 Intake Total 1400 360 Balance 1400 360 Intake: Oral 1400 360 Other: # Voids 4 1 # Bowel Movements 1 Active Medications: Current Medications Acetaminophen (Tylenol) 650 mg PO Q4H PRN PRN Reason: Pain (Mild 1-3) Stop: 08/06/19 02:31 Al Hydrox/Mg Hydrox/Simethicone (Maalox) 30 ml PO Q4HR PRN PRN Reason: GI DISTRESS Stop: 08/06/19 02:31 Atorvastatin Calcium (Lipitor) 40 mg PO HS [facility]; Protocol Stop: 08/08/19 20:59 Donepezil HCl (Aricept) 10 mg PO DAILY [facility] Stop: 08/08/19 08:59 Last Admin: 06/09/19 08:50 Dose: 10 mg Escitalopram Oxalate (Lexapro) 10 mg PO DAILY [facility]; Protocol Stop: 08/08/19 08:59 Last Admin: 06/09/19 08:50 Dose: 10 mg Folic Acid (Folate) 1 mg PO DAILY [facility] Stop: 08/08/19 08:59 Last Admin: 06/09/19 08:50 Dose: 1 mg Lorazepam (Ativan) 0.5 mg PO Q4HR PRN; Protocol PRN Reason: Anxiety Stop: 07/07/19 02:31 Magnesium Hydroxide (Milk Of Magnesia) 30 ml PO HS PRN PRN Reason: Constipation Multivitamins/Vitamin C (Theragran) 1 tab PO DAILY [facility] Stop: 08/06/19 08:59 Last Admin: 06/09/19 08:50 Dose: 1 tab Pantoprazole Sodium (Protonix) 40 mg PO QDAC [facility] Stop: 08/08/19 07:29 Last Admin: 06/09/19 06:44 Dose: 40 mg Risperidone (Risperdal) 1 mg PO DAILY [facility]; Protocol Stop: 08/07/19 12:14 Last Admin: 06/09/19 08:50 Dose: 1 mg Rivaroxaban (Xarelto) 20 mg PO QDPC [facility] Stop: 08/08/19 08:59 Last Admin: 06/09/19 08:53 Dose: 20 mg Zolpidem Tartrate (Ambien) 5 mg PO HS PRN PRN Reason: Insomnia Stop: 08/06/19 02:31 Last Admin: 06/08/19 20:55 Dose: 5 mg Physical Exam: Patient is very depressed and confused. General: demented HEENT: NC/AT, PERRLA Neck: Supple, No JVD Lungs: CTAB Cardiovascular: RRR, Normal S1, Normal S2 Abdomen: soft, non-tender Extremities: clear Neurological: no change Internal Medicine Assmt/Plan - Assessment Assessment: Hypertension. Hyperlipidemia. Severe Depression. History of Back surgery. - Plan Plan: Continue present meds as directed. Monitor vitals and labs. Psych management as per Psych. Supportive care. Pain management. Fall precaution Supportive Care. Monitor Diet/Nutritional support. Continue present care management. Nutritional Asmnt/Malnutr-PDOC - Dietary Evaluation Malnutrition Findings (Please click <Entered> for more info): see orders.
--- NOTE | 2019-06-09 23:44 | Progress Notes ---
DATE: SUBJECTIVE: Chart was reviewed and the patient interviewed. Also discussed the patient's condition with the staff and reviewed records and labs. The patient is still in a depressed mood. The patient also is still withdrawn and is still guarded and interacting minimally with others. He also still wants to be left alone and minimum exposure to his needs or feelings. Otherwise, the patient continues to comply with taking these medications with no side effects of medications. ASSESSMENT: The patient is still withdrawn and is still depressed and agitated. TREATMENT PLAN: Continue Lexapro, Risperdal and Aricept same dose. Also, continue monitoring behavior and continue to follow up. JOB# [id number]
[2019-06-10] MEDS: Pantoprazole 40 mg EC Tab PO SCH (06:41)
--- NOTE | 2019-06-10 07:00 | Progress Notes ---
DATE: 06/10/2019 PSYCHIATRIC PROGRESS NOTE SUBJECTIVE: Chart was reviewed and the patient interviewed. Also, discussed the patient's condition with the staff and reviewed records and labs. The patient remains in a depressed mood. The patient also is still withdrawn and interacting minimally with peers and with others. The patient also is still guarded and does not want to be left alone. He also is still feeling hopeless. Otherwise, the patient is compliant with taking his medications with no side effects of medications. ASSESSMENT: The patient is still depressed and is still guarded and withdrawn. The patient still has mood swings. The patient is still severely depressed. TREATMENT PLAN: We will continue Lexapro same dose. Also, continue current treatment and followup closely. [facility]# [id number]
[2019-06-10] MEDS: Multivitamin Tab PO SCH (08:18)
--- NOTE | 2019-06-10 13:06 | Internal Medicine Prog Note ---
Internal Medicine Subjective - Subjective Service Date: 06/10/19 Patient seen and examined:: with staff, chart reviewed Patient is:: awake, in bed, confused Patient Complaints of:: other (Severely depressed.) Per staff patient has:: no adverse event, no episodes of fall Internal Medicine Objective - Physical Exam Vitals and I&O: Vital Signs Temp 97 F 06/10/19 06:15 Pulse 82 06/10/19 06:15 Resp 20 06/10/19 07:40 BP 129/66 06/10/19 06:15 Pulse Ox 93 06/10/19 06:15 Intake & Output 06/09/19 06/10/19 06/10/19 18:59 06:59 18:59 Intake Total 960 120 Balance 960 120 Intake: Oral 960 120 Other: # Voids 4 3 # Bowel Movements 1 0 Active Medications: Current Medications Acetaminophen (Tylenol) 650 mg PO Q4H PRN PRN Reason: Pain (Mild 1-3) Stop: 08/06/19 02:31 Al Hydrox/Mg Hydrox/Simethicone (Maalox) 30 ml PO Q4HR PRN PRN Reason: GI DISTRESS Stop: 08/06/19 02:31 Atorvastatin Calcium (Lipitor) 40 mg PO HS [facility]; Protocol Stop: 08/08/19 20:59 Last Admin: 06/09/19 20:34 Dose: 40 mg Donepezil HCl (Aricept) 10 mg PO DAILY [facility] Stop: 08/08/19 08:59 Last Admin: 06/10/19 08:19 Dose: 10 mg Escitalopram Oxalate (Lexapro) 10 mg PO DAILY [facility]; Protocol Stop: 08/08/19 08:59 Last Admin: 06/10/19 08:19 Dose: 10 mg Folic Acid (Folate) 1 mg PO DAILY [facility] Stop: 08/08/19 08:59 Last Admin: 06/10/19 08:18 Dose: 1 mg Lorazepam (Ativan) 0.5 mg PO Q4HR PRN; Protocol PRN Reason: Anxiety Stop: 07/07/19 02:31 Magnesium Hydroxide (Milk Of Magnesia) 30 ml PO HS PRN PRN Reason: Constipation Multivitamins/Vitamin C (Theragran) 1 tab PO DAILY [facility] Stop: 08/06/19 08:59 Last Admin: 06/10/19 08:18 Dose: 1 tab Pantoprazole Sodium (Protonix) 40 mg PO QDAC [facility] Stop: 08/08/19 07:29 Last Admin: 06/10/19 06:41 Dose: 40 mg Risperidone (Risperdal) 1 mg PO DAILY [facility]; Protocol Stop: 08/07/19 12:14 Last Admin: 06/10/19 08:18 Dose: 1 mg Rivaroxaban (Xarelto) 20 mg PO QDPC [facility] Stop: 08/08/19 08:59 Last Admin: 06/10/19 08:18 Dose: 20 mg Zolpidem Tartrate (Ambien) 5 mg PO HS PRN PRN Reason: Insomnia Stop: 08/06/19 02:31 Last Admin: 06/09/19 20:34 Dose: 5 mg Physical Exam: Patient has mood swings, remains depressed and still confused. General: weak, demented HEENT: NC/AT, PERRLA Neck: Supple, No JVD Lungs: CTAB Cardiovascular: RRR, Normal S1, Normal S2 Abdomen: soft, non-tender Extremities: clear Neurological: no change Internal Medicine Assmt/Plan - Assessment Assessment: Hypertension. Hyperlipidemia. Severe Depression. History of Back surgery. - Plan Plan: Continue present meds as directed. Monitor vitals and labs. Psych management as per Psych. Supportive care. Pain management. Fall precaution Supportive Care. Monitor Diet/Nutritional support. Continue present care management. Nutritional Asmnt/Malnutr-PDOC - Dietary Evaluation Malnutrition Findings (Please click <Entered> for more info): see orders.
[2019-06-11] MEDS: Pantoprazole 40 mg EC Tab PO SCH (06:49)
[2019-06-11] MEDS: Multivitamin Tab PO SCH (08:16)
--- NOTE | 2019-06-11 08:45 | Progress Notes ---
DATE: 06/11/2019 SUBJECTIVE: Chart was reviewed and the patient interviewed. Also discussed the patient's condition with the staff and reviewed records and labs. The patient is still in a depressed mood. The patient also is still withdrawn and interacting minimally with others. He also still is feeling hopeless and helpless. He still has periods of irritability and agitation, but seems to be less than before. The patient also still needs close monitoring and encouragement to get out of his bed and to socialize more. ASSESSMENT: The patient is still depressed and slightly psychotic. TREATMENT PLAN: Continue to monitor his behavior and his condition closely. Also, continue adjusting psychotropic medications and work on his ineffective coping. JOB# [id number]
--- NOTE | 2019-06-11 13:55 | Internal Medicine Prog Note ---
Internal Medicine Subjective - Subjective Service Date: 06/11/19 Patient seen and examined:: with staff Patient is:: awake, agitated, confused Patient Complaints of:: other (Severely depressed.) Per staff patient has:: no adverse event, no episodes of fall Internal Medicine Objective - Physical Exam Vitals and I&O: Vital Signs Temp 96.8 F 06/11/19 06:22 Pulse 58 06/11/19 06:22 Resp 20 06/11/19 06:22 BP 105/57 06/11/19 06:22 Pulse Ox 98 06/11/19 06:22 Intake & Output 06/10/19 06/11/19 06/11/19 18:59 06:59 18:59 Intake Total 450 Balance 450 Intake: Oral 450 Other: # Voids 3 # Bowel Movements 1 0 Active Medications: Current Medications Acetaminophen (Tylenol) 650 mg PO Q4H PRN PRN Reason: Pain (Mild 1-3) Stop: 08/06/19 02:31 Al Hydrox/Mg Hydrox/Simethicone (Maalox) 30 ml PO Q4HR PRN PRN Reason: GI DISTRESS Stop: 08/06/19 02:31 Atorvastatin Calcium (Lipitor) 40 mg PO HS [facility]IV; Protocol Stop: 08/08/19 20:59 Last Admin: 06/10/19 20:03 Dose: 40 mg Donepezil HCl (Aricept) 10 mg PO DAILY [facility] Stop: 08/08/19 08:59 Last Admin: 06/11/19 08:16 Dose: 10 mg Escitalopram Oxalate (Lexapro) 10 mg PO DAILY [facility]; Protocol Stop: 08/08/19 08:59 Last Admin: 06/11/19 08:16 Dose: 10 mg Folic Acid (Folate) 1 mg PO DAILY [facility] Stop: 08/08/19 08:59 Last Admin: 06/11/19 08:16 Dose: 1 mg Lorazepam (Ativan) 0.5 mg PO Q4HR PRN; Protocol PRN Reason: Anxiety Stop: 07/07/19 02:31 Magnesium Hydroxide (Milk Of Magnesia) 30 ml PO HS PRN PRN Reason: Constipation Multivitamins/Vitamin C (Theragran) 1 tab PO DAILY [facility] Stop: 08/06/19 08:59 Last Admin: 06/11/19 08:16 Dose: 1 tab Pantoprazole Sodium (Protonix) 40 mg PO QDAC [facility] Stop: 08/08/19 07:29 Last Admin: 06/11/19 06:49 Dose: 40 mg Risperidone (Risperdal) 1 mg PO DAILY [facility]; Protocol Stop: 08/07/19 12:14 Last Admin: 06/11/19 08:16 Dose: 1 mg Rivaroxaban (Xarelto) 20 mg PO QDPC [facility] Stop: 08/08/19 08:59 Last Admin: 06/11/19 08:16 Dose: 20 mg Zolpidem Tartrate (Ambien) 5 mg PO HS PRN PRN Reason: Insomnia Stop: 08/06/19 02:31 Last Admin: 06/09/19 20:34 Dose: 5 mg Physical Exam: Patient needs close monitoring, remains confused, easily frustrated and depressed. General: weak, demented HEENT: NC/AT, PERRLA Neck: Supple, No JVD Lungs: CTAB Cardiovascular: RRR, Normal S1, Normal S2 Abdomen: soft, non-tender Extremities: clear Neurological: no change Internal Medicine Assmt/Plan - Assessment Assessment: Hypertension. Hyperlipidemia. Severe Depression. History of Back surgery. - Plan Plan: Continue present meds as directed. Monitor vitals and labs. Psych management as per Psych. Supportive care. Pain management. Fall precaution Supportive Care. Monitor Diet/Nutritional support. Continue present care management. Nutritional Asmnt/Malnutr-PDOC - Dietary Evaluation Malnutrition Findings (Please click <Entered> for more info): see orders.
[2019-06-12] MEDS: Pantoprazole 40 mg EC Tab PO SCH (06:46)
[2019-06-12] MEDS: Multivitamin Tab PO SCH (08:28)
--- NOTE | 2019-06-12 15:59 | Internal Medicine Prog Note ---
Internal Medicine Subjective - Subjective Service Date: 06/12/19 Patient is:: awake, agitated, confused Patient Complaints of:: other (Severely depressed.) Per staff patient has:: no adverse event, no episodes of fall Internal Medicine Objective - Physical Exam Vitals and I&O: Vital Signs Temp 97.7 F 06/12/19 13:50 Pulse 57 06/12/19 13:50 Resp 18 06/12/19 13:50 BP 116/68 06/12/19 13:50 Pulse Ox 96 06/12/19 13:50 Intake & Output 06/11/19 06/12/19 06/12/19 18:59 06:59 18:59 Intake Total 120 Balance 120 Intake: Oral 120 Other: # Voids 3 3 # Bowel Movements 1 Active Medications: Current Medications Acetaminophen (Tylenol) 650 mg PO Q4H PRN PRN Reason: Pain (Mild 1-3) Stop: 08/06/19 02:31 Al Hydrox/Mg Hydrox/Simethicone (Maalox) 30 ml PO Q4HR PRN PRN Reason: GI DISTRESS Stop: 08/06/19 02:31 Atorvastatin Calcium (Lipitor) 40 mg PO HS [facility]; Protocol Stop: 08/08/19 20:59 Last Admin: 06/11/19 20:53 Dose: 40 mg Donepezil HCl (Aricept) 10 mg PO DAILY [facility] Stop: 08/08/19 08:59 Last Admin: 06/12/19 08:29 Dose: Not Given Escitalopram Oxalate (Lexapro) 10 mg PO DAILY [facility]; Protocol Stop: 08/08/19 08:59 Last Admin: 06/12/19 08:30 Dose: Not Given Folic Acid (Folate) 1 mg PO DAILY [facility] Stop: 08/08/19 08:59 Last Admin: 06/12/19 08:28 Dose: 1 mg Lorazepam (Ativan) 0.5 mg PO Q4HR PRN; Protocol PRN Reason: Anxiety Stop: 07/07/19 02:31 Magnesium Hydroxide (Milk Of Magnesia) 30 ml PO HS PRN PRN Reason: Constipation Multivitamins/Vitamin C (Theragran) 1 tab PO DAILY [facility] Stop: 08/06/19 08:59 Last Admin: 06/12/19 08:28 Dose: 1 tab Pantoprazole Sodium (Protonix) 40 mg PO QDAC [facility] Stop: 08/08/19 07:29 Last Admin: 06/12/19 06:46 Dose: 40 mg Risperidone (Risperdal) 1 mg PO DAILY [facility]; Protocol Stop: 08/07/19 12:14 Last Admin: 06/12/19 08:31 Dose: Not Given Rivaroxaban (Xarelto) 20 mg PO QDPC [facility] Stop: 08/08/19 08:59 Last Admin: 06/12/19 08:28 Dose: 20 mg Zolpidem Tartrate (Ambien) 5 mg PO HS PRN PRN Reason: Insomnia Stop: 08/06/19 02:31 Last Admin: 06/09/19 20:34 Dose: 5 mg General: weak, demented HEENT: NC/AT, PERRLA Neck: Supple, No JVD Lungs: CTAB Cardiovascular: RRR, Normal S1, Normal S2 Abdomen: soft, non-tender Extremities: clear Neurological: no change Internal Medicine Assmt/Plan - Assessment Assessment: Hypertension. Hyperlipidemia. Severe Depression. History of Back surgery. - Plan Plan: Continue present meds as directed. Monitor vitals and labs. Psych management as per Psych. Supportive care. Pain management. Fall precaution Supportive Care. Monitor Diet/Nutritional support. Continue present care management.
--- NOTE | 2019-06-12 19:45 | Progress Notes ---
DATE: 06/12/2019 SUBJECTIVE: Chart was reviewed and the patient interviewed. Also discussed the patient's condition with the staff and reviewed records and labs. The patient seems to be slightly sedated and sleepy. The patient also has blood pressure that is low despite of drinking a lot of water that was enforced by the staff. He also is still confused and is still withdrawn and depressed and wants to be left alone. Otherwise, the patient is compliant with taking his medications, at times medicine was stopped because of being sedated. ASSESSMENT: The patient is still depressed, but sedated. TREATMENT PLAN: We will decrease Lexapro to 5 mg every day and Aricept to 5 mg every day. Also, we will stop Risperdal and continue to monitor behavior closely. JOB# [id number]
[2019-06-13] MEDS: Pantoprazole 40 mg EC Tab PO SCH (06:47)
[2019-06-13] MEDS: Multivitamin Tab PO SCH (08:05)
[2019-06-13] MEDS ORDERED: Escitalopram Oxalate 5 mg Tab PO SCH (09:00)
--- NOTE | 2019-06-13 13:40 | Progress Notes ---
DATE: SUBJECTIVE: Chart was reviewed and the patient interviewed. Also discussed the patient's condition with the staff and reviewed records and labs. The patient remains in a depressed mood. The patient also is still isolative and withdrawn and interacting minimally with others. The patient also is still suspicious and is still paranoid. Otherwise, the patient is compliant with taking his medications with no side effects of medications. ASSESSMENT: The patient is still depressed and still needs close monitoring. TREATMENT PLAN: Continue to work on the patient's ineffective coping and continue adjusting psychotropic medications and work on his paranoia and delusions. JOB# [id number]
--- NOTE | 2019-06-13 17:53 | Internal Medicine Prog Note ---
Internal Medicine Subjective - Subjective Service Date: 06/13/19 Patient is:: awake, agitated, confused Patient Complaints of:: other (Severely depressed.) Per staff patient has:: no adverse event, no episodes of fall Internal Medicine Objective - Physical Exam Vitals and I&O: Vital Signs Temp 98.0 F 06/13/19 14:00 Pulse 63 06/13/19 14:00 Resp 20 06/13/19 14:00 BP 102/61 06/13/19 14:00 Pulse Ox 99 06/13/19 14:00 Intake & Output 06/12/19 06/13/19 06/13/19 18:59 06:59 18:59 Intake Total 240 Balance 240 Intake: Oral 240 Other: # Voids 3 2 # Bowel Movements 1 0 Active Medications: Current Medications Acetaminophen (Tylenol) 650 mg PO Q4H PRN PRN Reason: Pain (Mild 1-3) Stop: 08/06/19 02:31 Al Hydrox/Mg Hydrox/Simethicone (Maalox) 30 ml PO Q4HR PRN PRN Reason: GI DISTRESS Stop: 08/06/19 02:31 Atorvastatin Calcium (Lipitor) 40 mg PO HS [facility]; Protocol Stop: 08/08/19 20:59 Last Admin: 06/12/19 20:46 Dose: 40 mg Donepezil HCl (Aricept) 5 mg PO DAILY [facility] Stop: 08/12/19 08:59 Escitalopram Oxalate (Lexapro) 5 mg PO DAILY [facility]; Protocol Stop: 08/12/19 08:59 Folic Acid (Folate) 1 mg PO DAILY [facility] Stop: 08/08/19 08:59 Last Admin: 06/13/19 08:04 Dose: 1 mg Lorazepam (Ativan) 0.5 mg PO Q4HR PRN; Protocol PRN Reason: Anxiety Stop: 07/07/19 02:31 Magnesium Hydroxide (Milk Of Magnesia) 30 ml PO HS PRN PRN Reason: Constipation Multivitamins/Vitamin C (Theragran) 1 tab PO DAILY [facility] Stop: 08/06/19 08:59 Last Admin: 06/13/19 08:05 Dose: 1 tab Pantoprazole Sodium (Protonix) 40 mg PO QDAC [facility] Stop: 08/08/19 07:29 Last Admin: 06/13/19 06:47 Dose: 40 mg Rivaroxaban (Xarelto) 20 mg PO QDPC [facility] Stop: 08/08/19 08:59 Last Admin: 06/13/19 08:11 Dose: 20 mg Zolpidem Tartrate (Ambien) 5 mg PO HS PRN PRN Reason: Insomnia Stop: 08/06/19 02:31 Last Admin: 06/09/19 20:34 Dose: 5 mg General: weak, demented HEENT: NC/AT, PERRLA Neck: Supple, No JVD Lungs: CTAB Cardiovascular: RRR, Normal S1, Normal S2 Abdomen: soft, non-tender Extremities: clear Neurological: no change Internal Medicine Assmt/Plan - Assessment Assessment: Hypertension. Hyperlipidemia. Severe Depression. History of Back surgery. - Plan Plan: Continue present meds as directed. Monitor vitals and labs. Psych management as per Psych. Supportive care. Pain management. Fall precaution Supportive Care. Monitor Diet/Nutritional support. Continue present care management.
[2019-06-14] MEDS: Pantoprazole 40 mg EC Tab PO SCH (06:49)
--- NOTE | 2019-06-14 08:35 | Progress Notes ---
DATE: 06/14/2019 SUBJECTIVE: The patient was seen in the room. The patient is awake. The patient appears to be guarded, very confused, easily gets frustrated, easily gets agitated. Otherwise, the patient appears to be in no acute distress. OBJECTIVE: VITAL SIGNS: Temperature 98.2, heart rate 67, blood pressure 97/62, respirations 19, 97% on room air. HEENT: Head is atraumatic and normocephalic. Eyes: Bilateral conjunctivae are clear. Bilateral pupils are equally round and reactive. NECK: Supple. No JVD. CARDIOVASCULAR: S1 and S2, without murmur. PULMONARY: Clear to auscultation. GASTROINTESTINAL: Soft and nontender without guarding. Positive bowel sounds. MUSCULOSKELETAL: No clubbing. No cyanosis noted. ASSESSMENT: 1. Major depression disorder. 2. Dementia. 3. Hypertension. 4. Hyperlipidemia. PLAN: We will continue to keep the patient to inpatient Psychiatric Unit. We will follow up with a psychiatrist to monitor the patient's condition and behavior. We will put the patient on fall precaution and aspiration precautions. Treatment plans were discussed with the patient's nurse. Treatment plans were discussed with Dr. Hughes. JOB# [id number]
[2019-06-14] MEDS: Multivitamin Tab PO SCH (08:41)
--- NOTE | 2019-06-14 21:16 | Progress Notes ---
DATE: 06/14/2019 SUBJECTIVE: Chart was reviewed and the patient interviewed. Also discussed the patient's condition with the staff and reviewed records and labs. The patient is still in a depressed mood and is still guarded. The patient also is still withdrawn and stays by himself most of the time. The patient also still has episodes of anger and irritability and yesterday, the patient refused to take Aricept and Lexapro. He also still wants to be left alone and does not interact much with others. He also is still __cooperative with his treatment most of the time, but still had episodes of irritability and anger. ASSESSMENT: The patient is still irritable and angry mood and needs close monitoring. TREATMENT PLAN: Continue to monitor the patient's behavior and condition closely. Also, encouraged the patient to take his psychotropic medications and get out of his isolation and to socialize more. At the same time, we will continue monitoring his medications and followup. JOB# [id number]
[2019-06-15] MEDS: Pantoprazole 40 mg EC Tab PO SCH (06:34)
[2019-06-15] MEDS: Multivitamin Tab PO SCH (09:10)
[2019-06-15] MEDS: Escitalopram Oxalate 5 mg Tab PO SCH (09:11)
--- NOTE | 2019-06-15 11:04 | Progress Notes ---
DATE: SUBJECTIVE: Chart was reviewed and the patient interviewed. Also discussed the patient's condition with the staff and reviewed records and labs. The patient is still in a depressed mood and he still wants to stay by himself most of the time. He has been out for meals and also tries to attend some of the groups. Otherwise, he is staying in his room closing his door most of the time. 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 He is interacting slightly more today and he is willing to go out more and to socialize more with others. Otherwise, the patient is compliant with taking medications and he has been taking his medications for the last couple of days regularly with no objection. ASSESSMENT: The patient is still severely depressed. TREATMENT PLAN: Continue to monitor his behavior and his condition closely. Also, we will increase Lexapro to 10 mg every day and continue to follow up closely. [facility]# [id number]
--- NOTE | 2019-06-15 15:29 | Internal Medicine Prog Note ---
Internal Medicine Subjective - Subjective Service Date: 06/15/19 Patient seen and examined:: with staff, chart reviewed Patient is:: awake, agitated, confused Patient Complaints of:: other (Severely depressed.) Per staff patient has:: no adverse event, no episodes of fall Internal Medicine Objective - Physical Exam Vitals and I&O: Vital Signs Temp 98.0 F 06/15/19 15:18 Pulse 68 06/15/19 15:18 Resp 18 06/15/19 15:18 BP 102/68 06/15/19 15:18 Pulse Ox 93 06/15/19 15:18 Intake & Output 06/14/19 06/15/19 06/15/19 18:59 06:59 18:59 Intake Total 400 Balance 400 Intake: Oral 400 Other: # Voids 2 # Bowel Movements 0 Active Medications: Current Medications Acetaminophen (Tylenol) 650 mg PO Q4H PRN PRN Reason: Pain (Mild 1-3) Stop: 08/06/19 02:31 Al Hydrox/Mg Hydrox/Simethicone (Maalox) 30 ml PO Q4HR PRN PRN Reason: GI DISTRESS Stop: 08/06/19 02:31 Atorvastatin Calcium (Lipitor) 40 mg PO HS RAJIV; Protocol Stop: 08/08/19 20:59 Last Admin: 06/14/19 21:26 Dose: 40 mg Donepezil HCl (Aricept) 5 mg PO DAILY RAJIV Stop: 08/12/19 08:59 Last Admin: 06/15/19 09:10 Dose: 5 mg Escitalopram Oxalate (Lexapro) 10 mg PO DAILY RAJIV; Protocol Stop: 08/14/19 08:59 Last Admin: 06/15/19 09:11 Dose: 10 mg Folic Acid (Folate) 1 mg PO DAILY RAJIV Stop: 08/08/19 08:59 Last Admin: 06/15/19 09:11 Dose: 1 mg Lorazepam (Ativan) 0.5 mg PO Q4HR PRN; Protocol PRN Reason: Anxiety Stop: 07/07/19 02:31 Magnesium Hydroxide (Milk Of Magnesia) 30 ml PO HS PRN PRN Reason: Constipation Multivitamins/Vitamin C (Theragran) 1 tab PO DAILY RAJIV Stop: 08/06/19 08:59 Last Admin: 06/15/19 09:10 Dose: 1 tab Pantoprazole Sodium (Protonix) 40 mg PO QDAC [facility] Stop: 08/08/19 07:29 Last Admin: 06/15/19 06:34 Dose: 40 mg Rivaroxaban (Xarelto) 20 mg PO QDPC [facility] Stop: 08/08/19 08:59 Last Admin: 06/15/19 09:10 Dose: 20 mg Zolpidem Tartrate (Ambien) 5 mg PO HS PRN PRN Reason: Insomnia Stop: 08/06/19 02:31 Last Admin: 06/09/19 20:34 Dose: 5 mg Physical Exam: Patient needs close monitoring, patient is very depressed and withdrawn, remains in room most of the time. General: weak, demented HEENT: NC/AT, PERRLA Neck: Supple, No JVD Lungs: CTAB Cardiovascular: RRR, Normal S1, Normal S2 Abdomen: soft, non-tender Extremities: clear Neurological: no change Internal Medicine Assmt/Plan - Assessment Assessment: Hypertension. Hyperlipidemia. Severe Depression. History of Back surgery. - Plan Plan: Continue present meds as directed. Monitor vitals and labs. Psych management as per Psych. Supportive care. Pain management. Fall precaution Supportive Care. Monitor Diet/Nutritional support. Continue present care management. Nutritional Asmnt/Malnutr-PDOC - Dietary Evaluation Malnutrition Findings (Please click <Entered> for more info): Nutritional Asmnt/Malnutrition Start: 06/14/19 11: 11 Text: Status: Complete Freq: Protocol: Document 06/14/19 11:11 ENEDINA (Rec: 06/14/19 11:17 ENEDINA DEL CID- FNS1) Nutritional Asmnt/Malnutrition Patient General Information Nutritional Screening Low Risk Diagnosis Psychosis Pertinent Medical Hx/Surgical Hx hypertension, hyperlipidemia, depression. Subjective Information Patient was admitted from [place] for severe depression and confusion. Tolerating current diet with adequate Per nursing notes, patient does not engage with peers, isolates to room. Laying in bed at time of visit. Current Diet Order/ Nutrition Support Regular Patient / S.O Not Indicated Pertinent Medications maalox, lipitor, folate, MOM, theragran, protonix Pertinent Labs (06/10) albumin 3.3 Nutritional Hx/Data Height 1.8 m Height (Calculated Centimeters) 180.3 Current Weight (lbs) 92.079 kg Weight (Calculated Kilograms) 92.1 Weight (Calculated Grams) 57940.3 [place] Body Weight 172 % [place] Body Weight 118 Body Mass Index (BMI) 28.3 Recent Weight Change No Weight Status Overweight GI Symptoms GI Symptoms None Last BM 06/13 x 1 Difficult in: None Food Allergies No Cultural/Ethnic/Hindu Belief none indicated Usual diet at home unknown Skin Integrity/Comment: Ana 21, intact Current %PO Good (75-100%) Estimated Nutritional Goals BEE in Kcals: Adj wt of IBW Calories/Kcals/Kg Adj BW 81.7kg 25-30 kcal/kg Kcals Calculated ~4051-1071 kcal/day Protein: Adj wt of IBW Protein g/k-1.2gm/kg Protein Calculated ~80-100 gm/day Fluid: ml ~7657-7572 ml/day (1 ml/kcal) Nutritional Problem No current Nutrition Prob Problem No nutrition diagnosis at this time. Intervention/Recommendation Comments 1. Continue regular diet as tolerated by patient. Expected Outcomes/Goals Expected Outcomes/Goals Oral intake >75% of meals, weight stable or trend toward IBW, nutrition related labs WNL F/U LR 06/21
[2019-06-16] MEDS: Pantoprazole 40 mg EC Tab PO SCH (06:39)
[2019-06-16] MEDS: Multivitamin Tab PO SCH (08:12)
[2019-06-16] MEDS: Escitalopram Oxalate 5 mg Tab PO SCH (08:13)
--- NOTE | 2019-06-16 11:03 | Discharge Summary ---
DATE OF DISCHARGE: 06/16/2019 AGE: 68. SEX: Male. PHYSICIAN: Dr. Samuel. FINAL DIAGNOSIS AND PRIMARY DIAGNOSIS: Depressive mood disorder, moderate to severe, recurrent, without psychotic features. SECONDARY DIAGNOSIS: Dementia, moderate, with behavioral disturbances. REASON FOR HOSPITALIZATION: The patient was admitted to the hospital because of increased depression and the isolation with hopeless and helpless feelings. The patient was also having lack of energy and lack of motivations and isolating himself. The patient was transferred to [facility] for evaluation and treatment. HOSPITAL COURSE: The patient continued to be severely depressed. The patient also is having trouble with his sleep at night. The patient continued to take Aricept and Risperdal, but added Lexapro 10 mg every day and trazodone 100 mg every day that helps the patient's affect to be brighter and the patient was less depressed and less agitated. The patient also was interacting slightly more. He denied any thoughts of suicide or homicide. The patient was having generalized weakness. The patient was accepted by [facility] for rehabilitation. The patient upon discharge was not suicidal or homicidal. Physical exam of the patient showed no major medical problems while in the hospital except that the patient was having generalized weakness. The patient also has a history of hyperlipidemia. AFTER DISCHARGE PLANS: The patient discharged from the hospital and went to [facility] with plan to follow him there. EXPECTED OUTCOME AFTER DISCHARGE: Fair if the patient continues with his treatment and continues to take his psychotropic medications. [facility]# [id number]
--- NOTE | 2019-06-16 12:38 | Internal Medicine Prog Note ---
Internal Medicine Subjective - Subjective Service Date: 06/16/19 Patient seen and examined:: with staff Patient is:: awake, agitated, confused Patient Complaints of:: other (Severely depressed.) Per staff patient has:: no adverse event, no episodes of fall Internal Medicine Objective - Physical Exam Vitals and I&O: Vital Signs Temp 97.5 F 06/16/19 06:36 Pulse 73 06/16/19 06:36 Resp 20 06/16/19 06:36 BP 93/56 06/16/19 06:36 Pulse Ox 98 06/16/19 06:36 Intake & Output 06/15/19 06/16/19 06/16/19 18:59 06:59 18:59 Intake Total 900 240 Balance 900 240 Intake: Oral 900 240 Other: # Voids 4 2 # Bowel Movements 1 Active Medications: Current Medications Acetaminophen (Tylenol) 650 mg PO Q4H PRN PRN Reason: Pain (Mild 1-3) Stop: 08/06/19 02:31 Al Hydrox/Mg Hydrox/Simethicone (Maalox) 30 ml PO Q4HR PRN PRN Reason: GI DISTRESS Stop: 08/06/19 02:31 Atorvastatin Calcium (Lipitor) 40 mg PO HS RAJIV; Protocol Stop: 08/08/19 20:59 Last Admin: 06/15/19 21:03 Dose: 40 mg Donepezil HCl (Aricept) 5 mg PO DAILY RAJIV Stop: 08/12/19 08:59 Last Admin: 06/16/19 08:13 Dose: 5 mg Escitalopram Oxalate (Lexapro) 10 mg PO DAILY RAJIV; Protocol Stop: 08/14/19 08:59 Last Admin: 06/16/19 08:13 Dose: 10 mg Folic Acid (Folate) 1 mg PO DAILY RAJIV Stop: 08/08/19 08:59 Last Admin: 06/16/19 08:12 Dose: 1 mg Lorazepam (Ativan) 0.5 mg PO Q4HR PRN; Protocol PRN Reason: Anxiety Stop: 07/07/19 02:31 Magnesium Hydroxide (Milk Of Magnesia) 30 ml PO HS PRN PRN Reason: Constipation Multivitamins/Vitamin C (Theragran) 1 tab PO DAILY RAJIV Stop: 08/06/19 08:59 Last Admin: 06/16/19 08:12 Dose: 1 tab Pantoprazole Sodium (Protonix) 40 mg PO QDAC [facility] Stop: 08/08/19 07:29 Last Admin: 06/16/19 06:39 Dose: 40 mg Rivaroxaban (Xarelto) 20 mg PO QDPC RAJIV Stop: 08/08/19 08:59 Last Admin: 06/16/19 08:12 Dose: 20 mg Zolpidem Tartrate (Ambien) 5 mg PO HS PRN PRN Reason: Insomnia Stop: 08/06/19 02:31 Last Admin: 06/09/19 20:34 Dose: 5 mg Physical Exam: Patient is being discharged today to [facility]. General: weak, demented HEENT: NC/AT, PERRLA Neck: Supple, No JVD Lungs: CTAB Cardiovascular: RRR, Normal S1, Normal S2 Abdomen: soft, non-tender Extremities: clear Neurological: no change Internal Medicine Assmt/Plan - Assessment Assessment: Hypertension. Hyperlipidemia. Severe Depression. History of Back surgery. - Plan Plan: Patient is being discharged to [facility] and will continue present care management. Nutritional Asmnt/Malnutr-PDOC - Dietary Evaluation Malnutrition Findings (Please click <Entered> for more info): Nutritional Asmnt/Malnutrition Start: 06/14/19 11: 11 Text: Status: Complete Freq: Protocol: Document 06/14/19 11:11 ENEDINA (Rec: 06/14/19 11:17 MMTED DEL CID- FNS1) Nutritional Asmnt/Malnutrition Patient General Information Nutritional Screening Low Risk Diagnosis Psychosis Pertinent Medical Hx/Surgical Hx hypertension, hyperlipidemia, depression. Subjective Information Patient was admitted from [place] for severe depression and confusion. Tolerating current diet with adequate Per nursing notes, patient does not engage with peers, isolates to room. Laying in bed at time of visit. Current Diet Order/ Nutrition Support Regular Patient / S.O Not Indicated Pertinent Medications maalox, lipitor, folate, MOM, theragran, protonix Pertinent Labs (06/10) albumin 3.3 Nutritional Hx/Data Height 1.8 m Height (Calculated Centimeters) 180.3 Current Weight (lbs) 92.079 kg Weight (Calculated Kilograms) 92.1 Weight (Calculated Grams) 49539.3 [place] Body Weight 172 % [place] Body Weight 118 Body Mass Index (BMI) 28.3 Recent Weight Change No Weight Status Overweight GI Symptoms GI Symptoms None Last BM 06/13 x 1 Difficult in: None Food Allergies No Cultural/Ethnic/Restorationist Belief none indicated Usual diet at home unknown Skin Integrity/Comment: Ana 21, intact Current %PO Good (75-100%) Estimated Nutritional Goals BEE in Kcals: Adj wt of IBW Calories/Kcals/Kg Adj BW 81.7kg 25-30 kcal/kg Kcals Calculated ~0441-7265 kcal/day Protein: Adj wt of IBW Protein g/k-1.2gm/kg Protein Calculated ~80-100 gm/day Fluid: ml ~1368-0950 ml/day (1 ml/kcal) Nutritional Problem No current Nutrition Prob Problem No nutrition diagnosis at this time. Intervention/Recommendation Comments 1. Continue regular diet as tolerated by patient. Expected Outcomes/Goals Expected Outcomes/Goals Oral intake >75% of meals, weight stable or trend toward IBW, nutrition related labs WNL F/U LR 06/21
== END 2019-06-16 19:00 | DRG 885 ==
LOC: GERO 06-07 02:22
PROVIDERS: ADMIT Psychiatry & Neurology Psychiatry; ATTEND Psychiatry & Neurology Psychiatry
DX: F33.3 Major depressive disorder, recurrent, severe with psychotic symptoms (principal); F03.91 Unspecified dementia, unspecified severity, with behavioral disturbance; I10 Essential (primary) hypertension; E78.5 Hyperlipidemia, unspecified
CPT/HCPCS: 83036-90; Z7610